=== PATIENT | female | born 1990 | race Caucasian/White ===

== ENCOUNTER 2021-05-27 17:19 | Inpatient (IN) ==
--- NOTE | 2021-05-27 18:11 | History & Physical Report ---
Date of Service May 27, 2021 Assessment & Plan (1) Dichorionic diamniotic twin : (2) Preeclampsia: (3) Pruritus of : Plan: Suspect preeclampsia, unclear if severe features. Check labs. Need more bp values. Give betameth. Will need to obtain gbs. Patient without symptoms but aware concern would be severe features needing induction. History of Present Illness Chief Complaint: planned nsts. Primary Care Provider: Ilya Craig 30yo at 35 6/7 wks ega twins here for planned twin nsts but with elevated bps. Patient notes increased swelling in feet and face last few days. Was in office last week and noted itching, all over, but particularly worse on hands and feet. She had lfts that were normal on 05/23/21. Notes some episodes of vomiting lately that she felt was related to acid reflux. No continued ruq or epig pain. No hough or visual change. BP repeated sitting with feet flat on floor and elevated 150s/90s. +3 protein on dip. PNC c/b 1. Di/di twins, concordant growth, last eval 05/03/21. 2. Recent pruritis in , cholestasis labs pending PNL rh pos, ri Allergies Allergy/AdvReac Type Severity Reaction Status Date / Time No Known Allergies Allergy Verified 05/23/21 16:04 Home Medications Medication Instructions Recorded Confirmed Type aspirin 81 mg tablet 81 mg PO DAILY 05/23/21 05/23/21 History prenat.vits,brianne,sug-[id number] 1 tab PO DAILY 05/23/21 05/23/21 History Patient History Surgical History S/P tonsillectomy [place] teeth extracted Family History Denies family history of Ovarian cancer Breast cancer Colorectal cancer Social History (Updated 05/23/21 @ 16:58 by Marlene Rasheed RN) Smoking Status: Never smoker Second Hand Exposure: No; Hx Alcohol Use: No Hx Substance Use: No Preferred Language: Kenyan Communication Ability: Effective Visual Impairment: No Limitations Hearing Ability: Normal Haircutter Required: No Beliefs That Will Affect Care: None marital status: marital status details: Matheus [phone] Current Living Situation: Spouse Current Living Situation Comment: lives with spouse, 1 dog. current occupational status: employed current occupation: teacher Feels Safe at Home: Yes Safety Concerns: Feels Safe At This Time Childhood Exposure to Second-Hand Smoke: No caffeine: No during the past year weight has: increased > 10 lbs Dental Care, Regularly: Yes Physical Activity Frequency: Daily Seatbelt Use: always Sunscreen Use: Yes Do you think of yourself as: straight/heterosexual Sexual Activity: has been sexually active within the last 12 months Gender Identity: Female Assistive Devices: None Review of Systems as per Subjective / HPI Physical Exam Constitutional: WD/WN, vitals as above Respiratory: normal respiratory effort, lungs clear to auscultation Cardiovascular: Rate/Rhythm: regular rate and regular rhythm Gastrointestinal (Abdomen): soft gravid nt, cephalic/cephalic by us Musculoskeletal: +2 edema nontender calves Neurologic: grossly normal DTRs +2 no clonus Psychiatric: A+Ox3, euthymic affect Genitourinary: OB Exam Monitor Tracing: + external FHT monitor used, + external uterine monitor used (irrit), + category I (x 2 ) and + normal FHT variability Results & Data ([facility]) Vital Signs (Past 12 Hours) Vital Signs Temp Pulse BP 05/27/21 18:07 61 159/95 H 05/27/21 18:04 98.8 F 05/27/21 17:54 58 L 169/100 H 05/27/21 17:48 70 168/99 H 05/27/21 17:29 75 152/99 H 05/27/21 17:28 73 158/103 H Coding Level of Care Code None Diagnoses Dichorionic diamniotic twin O30.049 Preeclampsia O14.90 Pruritus of O99.719; L29.9
[2021-05-27] MEDS ORDERED: BETAMETH SOD PHOS/ACETATE IA 6 MG/ML IM STA (18:30)
[2021-05-27 18:41] LABS: Mean Corpuscular Hgb Conc 35.3 g/dL (32-36); Nucleated RBC # (auto) 0.04 K/uL (0-0); Nucleated RBC % (auto) 0.6 %
[2021-05-27 18:48] LABS: Hematocrit (blood only) 35.7 % (37-47); Hemoglobin 12.6 g/dL (12.0-16.0); Mean Corpuscular Hemoglobin 31.4 pg (25-34); RDW Coefficient of Variation 13.7 % (11.5-14.5); RDW Standard Deviation 44.6 fL (36.4-46.3); Red Blood Count 4.01 M/uL (4.2-5.4); White Blood Count 5.49 K/uL (4.8-10.8)
[2021-05-27 18:52] LABS: Partial Thromboplastin Ratio 1.1; Partial Thromboplastin Time 30.1 Seconds (21.0-31.0); Prothrombin Time 10.3 Seconds (9.0-12.0)
[2021-05-27 19:05] LABS: Alanine Aminotransferase 46 U/L (7-52); Albumin Globulin Ratio 1.2 (0.9-2); Alkaline Phosphatase 296 U/L (34-104); Anion Gap 7 (3-11); Aspartate Aminotransferase 49 U/L (13-39); Bilirubin,Total 0.8 mg/dl (0.2-1.0); Blood Urea Nitrogen 17 mg/dl (6-23); Calcium 8.7 mg/dl (8.5-10.1); Carbon Dioxide 19 mmol/L (21-32); Chloride 108 mmol/L (98-107); Est GFR (African American) 86.9 ml/min; Globulin 2.6 gm/dl (2.5-4.0); Glucose 75 mg/dl (70-99(Fasting)); Potassium 4.7 mmol/L (3.5-5.1); Sodium 134 mmol/L (136-145); Total Protein 5.6 gm/dl (6.0-8.3)
[2021-05-27 19:17] LABS: Basophils # (auto) 0.02 K/uL (0-0.2); Basophils % (auto) 0.4 %; Eosinophils # (auto) 0.05 K/uL (0-0.5); Eosinophils % (auto) 0.9 %; Immature Granulocytes # (auto) 0.05 K/uL (0.00-0.02); Immature Granulocytes % (auto) 0.9 %; Lymphocytes # (auto) 1.84 K/uL (1.2-3.4); Lymphocytes % (auto) 33.5 %; Monocytes # (auto) 0.54 K/uL (0.11-0.59); Monocytes % (auto) 9.8 %; Neutrophils # (auto) 2.99 K/uL (1.4-6.5); Neutrophils % (auto) 54.5 %; Platelet Count 149 K/uL (130-400); Platelet Estimate Normal (Normal); Polychromasia 1+
[2021-05-27 20:07] LABS: Creatinine Urine Random 74.5 mg/dl; Protein Creatinine Ratio Urine 5.4 (0-0.2); Total Protein Urine Random 401.2 mg/dl (0-11.9)
--- NOTE | 2021-05-27 21:22 | Obstetrical Progress Note ---
Date of Service May 27, 2021 Assessment & Plan (1) Preeclampsia: (2) Dichorionic diamniotic twin : (3) with 35 completed weeks gestation: Plan: Serial bps for most part not severe range. When sbp >160 is not repeated in 15min. Again denies symptoms. Given labs, creat 1.0 and ast slightly elevated but not 2x normal noted. [place] [facility] [place] scenario. Clearly preeclampsia but was not sure they would consider her meeting severe features. Reviewed with mfm and feel best to keep in house, do serial labs with high suspicion that her picture may declare itself with more time. Already has had steroids. They also feel that waiting for allow for that benefit. Had reviewed patient scenario with peds who agrees with keeping patient here for any planned delivery. Given presentations, pt would want attempt at vaginal delivery. Dis cussed all with pt. Plan labs again at 1230 and change to 23hr obs for now. Plan gbs swab and covid test. Also spoke to oncoming md for am re: pt scenario to collaborate given their involvement with pt tomorrow. Subjective Pt denies complaints. She is wanting to eat. Physical Exam Genitourinary: OB Exam Monitor Tracing: + external FHT monitor used (nst x 2 reactive) Results & Data ([facility]) Vital Signs (Past 12 Hours) Vital Signs Temp Pulse Resp BP 05/27/21 20:48 64 143/94 H 05/27/21 20:18 67 140/88 05/27/21 19:48 67 141/91 H 05/27/21 19:21 68 153/97 H 05/27/21 19:19 71 164/107 H 05/27/21 19:15 98.1 F 18 05/27/21 18:50 69 157/95 H 05/27/21 18:07 61 159/95 H 05/27/21 18:04 98.8 F 05/27/21 17:54 58 L 169/100 H 05/27/21 17:48 70 168/99 H 05/27/21 17:29 75 152/99 H 05/27/21 17:28 73 158/103 H Laboratory Results reviewed all. PG Care Time/CCT Total # of Minutes Spent Total Time Spent with Patient: Total time spent is greater than 50% in coordination of care (as documented) at patient's floor/unit and/or counseling patient: Coding Level of Care Code None Diagnoses Preeclampsia O14.90 Dichorionic diamniotic twin O30.049 with 35 completed weeks gestation Z3A.35
[2021-05-27] MEDS ORDERED: FAMOTIDINE 20 MG TAB PO PRN (21:43)
[2021-05-27] MEDS ORDERED: CALCIUM CARBONATE 500 MG CHEWABLE TAB PO PRN (21:43)
--- NOTE | 2021-05-27 21:53 | Obstetrical Progress Note ---
Date of Service May 27, 2021 Assessment & Plan (1) Preeclampsia: (2) with 35 completed weeks gestation: (3) Dichorionic diamniotic twin : Plan: needed to get and send gbs. covid test neg. discussed induction methods if we get there, like gregg ripening balloon and pitocin. discussed use of magnesium for seizure prophylaxis. rec she have a diet now and then nothing as we await 1230am labs. will get heplock as well and due to c/o heartburn i put in prn orders for pepcid and tums. pt aware. denies questions. rec light diet. Admission and Anticipated Discharge Date Admission Date: May 27, 2021 Physical Exam Genitourinary: Manual OB Exam: + cervical dilation fingertip, + cervical effacement 70% and + station (mid, med) -2 gbs obtained. Results & Data ([facility]) Vital Signs (Past 12 Hours) Vital Signs Temp Pulse Resp BP 05/27/21 21:44 69 181/98 H 05/27/21 21:43 65 159/102 H 05/27/21 20:48 64 143/94 H 05/27/21 20:18 67 140/88 05/27/21 19:48 67 141/91 H 05/27/21 19:21 68 153/97 H 05/27/21 19:19 71 164/107 H 05/27/21 19:15 98.1 F 18 05/27/21 18:50 69 157/95 H 05/27/21 18:07 61 159/95 H 05/27/21 18:04 98.8 F 05/27/21 17:54 58 L 169/100 H 05/27/21 17:48 70 168/99 H 05/27/21 17:29 75 152/99 H 05/27/21 17:28 73 158/103 H PG Care Time/CCT Total # of Minutes Spent Total Time Spent with Patient: Total time spent is greater than 50% in coordination of care (as documented) at patient's floor/unit and/or counseling patient: Coding Level of Care Code None Diagnoses Preeclampsia O14.90 with 35 completed weeks gestation Z3A.35 Dichorionic diamniotic twin O30.049
[2021-05-28 00:41] LABS: Hematocrit (blood only) 36.5 % (37-47); Mean Corpuscular Hemoglobin 31.3 pg (25-34); Mean Corpuscular Hgb Conc 35.6 g/dL (32-36); Mean Platelet Volume 12.7 fL (7.4-10.4); Nucleated RBC # (auto) 0.05 K/uL (0-0); Nucleated RBC % (auto) 0.6 %; Platelet Count 159 K/uL (130-400); RDW Coefficient of Variation 13.6 % (11.5-14.5); RDW Standard Deviation 44.1 fL (36.4-46.3); Red Blood Count 4.15 M/uL (4.2-5.4); White Blood Count 7.69 K/uL (4.8-10.8)
[2021-05-28 01:03] LABS: Alanine Aminotransferase 51 U/L (7-52); Albumin Globulin Ratio 1.1 (0.9-2); Alkaline Phosphatase 301 U/L (34-104); Anion Gap 10 (3-11); Aspartate Aminotransferase 54 U/L (13-39); BUN Creatinine Ratio 17.1 (10-20); Bilirubin,Total 0.8 mg/dl (0.2-1.0); Blood Urea Nitrogen 19 mg/dl (6-23); Calcium 8.4 mg/dl (8.5-10.1); Carbon Dioxide 17 mmol/L (21-32); Chloride 107 mmol/L (98-107); Est GFR (African American) 76.6 ml/min; Est GFR (Non-African American) 66.1 ml/min; Globulin 2.7 gm/dl (2.5-4.0); Glucose 148 mg/dl (70-99(Fasting)); Potassium 4.6 mmol/L (3.5-5.1); Sodium 134 mmol/L (136-145); Total Protein 5.7 gm/dl (6.0-8.3)
[2021-05-28] MEDS ORDERED: miSOPROStoL 25 MCG TAB PV STA (02:25)
[2021-05-28] MEDS ORDERED: LACTATED RINGER'S 500 ML IV ONE (02:28)
--- NOTE | 2021-05-28 02:28 | Labor Progress Brief Note ---
Date of Service May 28, 2021 Subjective did have some dinner. feels ok. no hough or visual change. no n/v. bps mild range. labs worsening, although incremental, as d/w mfm, meets severe features. Assessment & Plan (1) Dichorionic diamniotic twin : (2) Severe preeclampsia: Plan: Discussed with couple findings on repeat labs. Incrementally increased and suspect will cont to increase. Based on prior conversation with mfm, with any worsening, rec induction of labor. Patient and partner agree. Will plan labs again in 6hr. After this discussion, risks/benefits, we attempted gregg balloon placement which was not successful. Can consider cytotec but currently having more ctx than would allow use, therefore will give bolus and see if they space, if not or when we start pitocin, will start magnesium. All reviewed with patient and questions answered. Admission and Anticipated Discharge Date Admission Date: May 27, 2021 Physical Exam Constitutional: WD/WN, vitals as above Genitourinary: OB Exam Monitor Tracing: + external FHT monitor used (x2 reactive. ), + external uterine monitor used (q2-4), + category I and + normal FHT variability PROCEDURE: sse cx visualized, lighting extremely poor, used lighted speculum and metal spec. cx grasped on ant lip with ring forcep, gregg unable to pass through os after 3 attempts. Procedure aborted. Results & Data ([facility]) Vital Signs (Past 12 Hours) Vital Signs Temp Pulse Resp BP 05/28/21 01:48 71 155/91 H 05/28/21 01:17 66 141/87 H 05/28/21 00:22 72 143/91 H 05/27/21 22:38 63 167/80 H 05/27/21 22:17 70 146/94 H 05/27/21 22:04 70 153/104 H 05/27/21 21:50 75 158/107 H 05/27/21 21:44 69 181/98 H 05/27/21 21:43 65 159/102 H 05/27/21 20:48 64 143/94 H 05/27/21 20:18 67 140/88 05/27/21 19:48 67 141/91 H 05/27/21 19:21 68 153/97 H 05/27/21 19:19 71 164/107 H 05/27/21 19:15 98.1 F 18 05/27/21 18:50 69 157/95 H 05/27/21 18:07 61 159/95 H 05/27/21 18:04 98.8 F 05/27/21 17:54 58 L 169/100 H 05/27/21 17:48 70 168/99 H 05/27/21 17:29 75 152/99 H 05/27/21 17:28 73 158/103 H Coding Level of Care Code None Diagnoses Dichorionic diamniotic twin O30.049 Severe preeclampsia O14.10 CPT Codes Misx Procedure Codes - 76485-89 Placement of cervical dilator: 67422-48 Placement of cervical dilator w/53 modifier (TI62558-41) CLIENT LIAISON Miscellaneous Codes Misx Procedure Codes 22450-27 Placement of cervical dilator w/53 modifier
[2021-05-28] MEDS: LACTATED RINGER'S 1,000 ML IV SCH ×2 (03:20→08:42)
[2021-05-28] MEDS ORDERED: OXYTOCIN 30 UNITS/500 ML BAG IV PRN (05:59)
[2021-05-28] MEDS ORDERED: MAG SULFATE 4GM BOLUS FROM BAG IV ONE (05:59)
[2021-05-28 06:11] LABS: Hemoglobin 12.3 g/dL (12.0-16.0); Mean Corpuscular Hemoglobin 30.7 pg (25-34); Mean Corpuscular Hgb Conc 34.2 g/dL (32-36); Mean Corpuscular Volume 89.8 fL (80-100); Mean Platelet Volume 13.6 fL (7.4-10.4); Nucleated RBC # (auto) 0.05 K/uL (0-0); Nucleated RBC % (auto) 0.9 %; Platelet Count 153 K/uL (130-400); RDW Coefficient of Variation 13.6 % (11.5-14.5); RDW Standard Deviation 44.3 fL (36.4-46.3); Red Blood Count 4.01 M/uL (4.2-5.4); White Blood Count 5.72 K/uL (4.8-10.8)
[2021-05-28 06:20] LABS: Alanine Aminotransferase 50 U/L (7-52); Albumin Level 2.7 gm/dl (3.4-5.0); Alkaline Phosphatase 283 U/L (34-104); Anion Gap 9 (3-11); Aspartate Aminotransferase 53 U/L (13-39); BUN Creatinine Ratio 18.9 (10-20); Bilirubin,Total 0.8 mg/dl (0.2-1.0); Blood Urea Nitrogen 20 mg/dl (6-23); Calcium 7.9 mg/dl (8.5-10.1); Carbon Dioxide 15 mmol/L (21-32); Chloride 110 mmol/L (98-107); Est GFR (Non-African American) 69.9 ml/min; Globulin 2.6 gm/dl (2.5-4.0); Glucose 109 mg/dl (70-99(Fasting)); Sodium 134 mmol/L (136-145); Total Protein 5.3 gm/dl (6.0-8.3)
[2021-05-28] MEDS: MAGNESIUM SULFATE / WTR 40 GM/1,000 ML BAG IV SCH (07:37)
--- NOTE | 2021-05-28 08:33 | Labor Progress Brief Note ---
Date of Service May 28, 2021 Subjective doing ok. denies hough, visual change. alot of swelling. Assessment & Plan (1) Severe preeclampsia: (2) 36 weeks gestation of : (3) Dichorionic diamniotic twin : Plan: stable. am labs reviewed. stable, not worsening. cx exam as noted s/p cytotec x 1. will await oncoming md to decide next steps--suspect pitocin given amount of ctx. mag infusing. plan pcn for gbs unknown. fhts categ 1 x2. plan of care reviewed, denies questions. Admission and Anticipated Discharge Date Admission Date: May 27, 2021 Physical Exam Constitutional: WD/WN, vitals as above Musculoskeletal: +3 edema. Genitourinary: Manual OB Exam: + cervical dilation 1 cm, + cervical effacement 80% and + station (anterior and left) -2 OB Exam Monitor Tracing: + external FHT monitor used, + external uterine monitor used (q2-3 ), + category I and + normal FHT variability Results & Data ([facility]) Vital Signs (Past 12 Hours) Vital Signs Temp Pulse Resp BP 05/28/21 08:08 82 137/79 05/28/21 08:04 83 136/80 05/28/21 07:59 78 131/85 05/28/21 07:53 76 142/92 H 05/28/21 07:49 85 142/94 H 05/28/21 07:48 82 137/89 05/28/21 07:43 83 141/89 H 05/28/21 07:38 73 148/94 H 05/28/21 07:26 97.7 F 74 18 152/92 H 05/28/21 05:57 93 H 136/79 05/28/21 05:26 83 118/68 05/28/21 04:58 75 129/73 05/28/21 03:47 69 124/73 05/28/21 03:22 72 151/85 H 05/28/21 01:48 71 155/91 H 05/28/21 01:17 66 141/87 H 05/28/21 00:22 72 143/91 H 05/27/21 22:38 63 167/80 H 05/27/21 22:17 70 146/94 H 05/27/21 22:04 70 153/104 H 05/27/21 21:50 75 158/107 H 05/27/21 21:44 69 181/98 H 05/27/21 21:43 65 159/102 H 05/27/21 20:48 64 143/94 H Coding Level of Care Code None Diagnoses Severe preeclampsia O14.10 36 weeks gestation of Z3A.36 Dichorionic diamniotic twin O30.049
[2021-05-28] MEDS ORDERED: PENICILLIN G POTASSIUM 6 MU in DEXTROSE 5% 250 ML IV STA (08:42)
[2021-05-28] MEDS: ONDANSETRON INJ 2 MG/ML 2 ML VIAL IV PRN ×2 (10:44→16:54)
[2021-05-28] MEDS: PENICILLIN G POTASSIUM 3 MU in DEXTROSE 5% 100 ML IV PRN ×3 (13:02→21:23)
[2021-05-28] MEDS ORDERED: ePHEDrine sulfate 50 MG/ML AMP ONE (16:08)
[2021-05-28] MEDS ORDERED: fentaNYL citrate 100 MCG/2 ML VIAL ONE ×2 (16:09→23:09)
[2021-05-28] MEDS ORDERED: BUPIVACAINE 0.25% 30 ML VIAL ONE ×2 (16:09→23:09)
[2021-05-28] MEDS ORDERED: SODIUM CHLORIDE 0.9% INJ 10 ML VIAL ONE ×2 (16:09→23:13)
[2021-05-28] MEDS ORDERED: fentaNYL 2MCG/ML ROPIVACAINE 1.25MG/ML 100 ML BAG EPI ONE (16:09)
[2021-05-28] MEDS ORDERED: diphenhydrAMINE 50 MG/ML VIAL IV PRN (16:10)
[2021-05-28] MEDS ORDERED: ONDANSETRON INJ 2 MG/ML 2 ML VIAL IV PRN (16:10)
[2021-05-28] MEDS ORDERED: ePHEDrine sulfate 50 MG/ML AMP IV PRN (16:10)
[2021-05-28] MEDS ORDERED: NALOXONE HCL 0.4 MG/1 ML VIAL/CARP IV PRN (16:10)
[2021-05-28] MEDS ORDERED: NALOXONE HCL 1 MG in SODIUM CHLORIDE 0.9% 1000ML 1,000 ML IV PRN (16:10)
[2021-05-28] MEDS ORDERED: NALBUPHINE HCL INJ 10 MG/ML AMP IV PRN (16:10)
--- NOTE | 2021-05-28 16:11 | Anesthesiology Consultation ---
Date of Service May 28, 2021 Assessment & Plan (1) Encounter for pre-operative examination: Chart Review Chart Review: Patient NOT seen in Pre Admission Testing and Acceptable Risk for Labor Epidural Consults Requested none History Height/Weight Height: 5 ft 7 in Weight: 90.945 kg Allergies Allergy/AdvReac Type Severity Reaction Status Date / Time No Known Allergies Allergy Verified 05/23/21 16:04 Medications Home Medications Medication Instructions Recorded Confirmed Last Taken prenat.vits,brianne,[id number]-[id number]-[id number] 1 tab PO DAILY 05/23/21 05/28/21 05/23/21 08:00 aspirin 81 mg chewable tablet 81 mg PO DAILY 05/28/21 05/28/21 Unknown Active Medications Generic Name Dose Route Start Last Admin Trade Name Freq PRN Reason Stop Dose Admin Famotidine 20 mg 05/27/21 21:43 05/28/21 03:20 Famotidine 20 Mg Tab PO 06/26/21 21:44 20 mg BID PRN Administration Heartburn Lactated Ringer's 1,000 mls @ 125 mls/hr 05/28/21 03:00 05/28/21 08:42 Lr IV 06/27/21 02:59 75 mls/hr .Q8H BELLE Administration Oxytocin 30 units in 500 mls @ 9 mls/hr 05/28/21 05:59 05/28/21 14:28 Pitocin IV 05/30/21 05:58 0.54 units/hr .Q24H PRN 9 mls/hr Labor Induction/Augmentation Titration Protocol 0.54 UNITS/HR Magnesium Sulfate 40 gm in 1,000 mls @ 50 mls/hr 05/28/21 06:00 05/28/21 14:58 Magnesium Sulfate / Wtr IV 06/27/21 05:59 50 mls/hr .Q20H BELLE Infusion Penicillin G Potassium 3 mu/ 106 mls @ 100 mls/hr 05/28/21 11:34 05/28/21 15:30 Dextrose IV 06/07/21 11:33 Infused Q4H PRN Infusion GBS(+) Until Delivery Ondansetron HCl 4 mg 05/28/21 10:28 05/28/21 10:44 Ondansetron Inj 2 Mg/Ml 2 Ml Vial IV 06/27/21 10:27 4 mg Q6H PRN Administration Nausea And Vomiting Past Medical History Medical History (Updated 05/28/21 @ 16:11 by Saji De La Cruz MD) Dichorionic diamniotic twin Severe preeclampsia Past Family History Family History Denies family history of Ovarian cancer Breast cancer Colorectal cancer Past Surgical History Surgical History S/P tonsillectomy [place] teeth extracted Social History Smoking Status: Never smoker Hx Alcohol Use: No Hx Substance Use: No substance use type: does not use Physical Exam Vital Signs Last Vital Signs Temp 36.6 C 05/28/21 15:05 Pulse 90 05/28/21 16:08 Resp 16 05/28/21 15:30 BP 144/84 H 05/28/21 15:41 Pulse Ox 100 05/28/21 16:08 Testing Laboratory Results 05/28/21 05:46 05/28/21 05:46 PT 10.3 Seconds (9.0-12.0) 05/27/21 18:27 INR 1.0 (0.9-1.1) 05/27/21 18:27 APTT 30.1 Seconds (21.0-31.0) 05/27/21 18:27
[2021-05-28 16:36] LABS: Hematocrit (blood only) 41.1 % (37-47); Mean Corpuscular Volume 91.1 fL (80-100); Nucleated RBC # (auto) 0.08 K/uL (0-0); Nucleated RBC % (auto) 0.8 %; Platelet Count 227 K/uL (130-400); RDW Coefficient of Variation 14.1 % (11.5-14.5); Red Blood Count 4.51 M/uL (4.2-5.4); White Blood Count 10.27 K/uL (4.8-10.8)
[2021-05-28 16:47] LABS: Mean Corpuscular Hgb Conc 34.1 g/dL (32-36)
[2021-05-28 16:55] LABS: Creatinine Clr Calc Pharmacy 76.7 ml/min; Est GFR (African American) 67.7 ml/min; Est GFR (Non-African American) 58.4 ml/min
[2021-05-28 17:03] LABS: Basophils # (auto) 0.01 K/uL (0-0.2); Basophils % (auto) 0.1 %; Eosinophils # (auto) 0.01 K/uL (0-0.5); Eosinophils % (auto) 0.1 %; Immature Granulocytes # (auto) 0.14 K/uL (0.00-0.02); Immature Granulocytes % (auto) 1.4 %; Lymphocytes # (auto) 1.64 K/uL (1.2-3.4); Monocytes # (auto) 0.95 K/uL (0.11-0.59); Monocytes % (auto) 9.3 %; Neutrophils # (auto) 7.52 K/uL (1.4-6.5); Neutrophils % (auto) 73.1 %
[2021-05-28] MEDS: fentaNYL 2MCG/ML ROPIVACAINE 1.25MG/ML 100 ML BAG EPI PRN ×2 (17:19→22:32)
[2021-05-28] MEDS ORDERED: BETAMETH SOD PHOS/ACETATE IA 6 MG/ML IM ONE (19:30)
--- NOTE | 2021-05-28 19:40 | Labor Progress Brief Note ---
Date of Service May 28, 2021 Subjective Reason For Note: Routine Evaluation patient comfortable with epidural analgesia- no PIH symptoms legs and lower abdomen edematous AROM at 1430 today for clear fluid Both babies are category 1 tracing with baselines in 110's labs from 1600 are stable with platelets actually increased at 253K cervix exam still 1+/80/-2 pitocin at 11 milliunits now IUPC attempted but unable to advance at this time contractions still not consistent continue with pitocin induction Review of Systems All systems reviewed & are unremarkable except as noted in HPI & below Assessment & Plan (1) Encounter for induction of labor: Plan: continue pitocin IOL will recheck labs at midnight Admission and Anticipated Discharge Date Admission Date: May 27, 2021 Physical Exam Constitutional: WD/WN, vitals as above Psychiatric: A+Ox3, euthymic affect [facility]) Vital Signs (Past 12 Hours) Vital Signs Temp Pulse Resp BP Pulse Ox 05/28/21 19:30 79 99 05/28/21 19:25 80 100 05/28/21 19:20 88 99 05/28/21 19:15 70 97 05/28/21 19:10 73 98 05/28/21 19:06 86 117/70 05/28/21 19:05 79 98 05/28/21 19:01 85 127/87 05/28/21 19:00 98.1 F 87 20 98 05/28/21 18:57 88 132/86 05/28/21 18:55 82 98 05/28/21 18:51 71 128/77 05/28/21 18:50 72 96 05/28/21 18:47 72 130/77 05/28/21 18:45 70 96 05/28/21 18:41 69 130/78 05/28/21 18:40 70 97 05/28/21 18:37 70 127/75 05/28/21 18:35 72 96 05/28/21 18:31 71 125/71 05/28/21 18:30 71 18 96 05/28/21 18:26 68 128/71 05/28/21 18:25 72 96 05/28/21 18:21 71 125/72 05/28/21 18:20 73 96 05/28/21 18:17 72 126/75 05/28/21 18:15 69 97 05/28/21 18:12 69 126/73 05/28/21 18:10 71 98 05/28/21 18:07 69 130/76 05/28/21 18:05 71 100 05/28/21 18:02 76 135/78 05/28/21 18:00 79 18 100 05/28/21 17:55 78 100 05/28/21 17:52 75 128/68 05/28/21 17:50 74 99 05/28/21 17:46 75 126/68 05/28/21 17:45 74 99 05/28/21 17:42 89 133/72 05/28/21 17:40 77 100 05/28/21 17:36 80 128/71 05/28/21 17:35 83 100 05/28/21 17:34 88 133/70 05/28/21 17:32 80 127/66 05/28/21 17:30 86 128/66 99 05/28/21 17:28 92 H 149/68 H 05/28/21 17:26 83 133/78 05/28/21 17:25 85 98 05/28/21 17:24 85 131/80 05/28/21 17:22 88 137/84 05/28/21 17:20 89 132/82 98 05/28/21 17:18 95 H 137/85 05/28/21 17:16 91 H 134/79 05/28/21 17:15 94 H 98 05/28/21 17:10 99 H 96 05/28/21 17:05 101 H 99 05/28/21 17:00 88 100 05/28/21 16:55 79 100 05/28/21 16:50 74 100 05/28/21 16:45 74 100 05/28/21 16:42 74 135/78 05/28/21 16:40 83 100 05/28/21 16:35 86 100 05/28/21 16:13 83 100 05/28/21 16:08 90 100 05/28/21 16:03 83 98 05/28/21 15:58 75 100 05/28/21 15:54 83 91 05/28/21 15:53 78 100 05/28/21 15:49 78 92 05/28/21 15:48 78 100 05/28/21 15:43 81 96 05/28/21 15:41 74 144/84 H 05/28/21 15:38 74 100 05/28/21 15:33 81 100 05/28/21 15:30 16 05/28/21 15:28 82 100 05/28/21 15:23 77 99 05/28/21 15:18 82 100 05/28/21 15:13 80 100 05/28/21 15:08 77 100 05/28/21 15:05 97.9 F 20 05/28/21 15:03 83 100 05/28/21 15:00 18 05/28/21 14:58 85 100 05/28/21 14:55 77 154/85 H 05/28/21 14:53 86 100 05/28/21 14:48 82 100 05/28/21 14:43 80 100 05/28/21 14:38 84 97 05/28/21 14:33 77 100 05/28/21 14:30 18 05/28/21 14:28 84 18 99 05/28/21 14:23 89 98 05/28/21 13:50 75 97 05/28/21 13:45 70 96 05/28/21 13:41 69 132/74 05/28/21 13:40 72 96 05/28/21 13:35 75 97 05/28/21 13:30 69 98 05/28/21 13:25 75 99 05/28/21 13:20 84 100 05/28/21 13:15 97.9 F 80 18 100 05/28/21 13:10 81 100 05/28/21 13:05 80 99 05/28/21 13:00 83 18 100 05/28/21 12:55 83 99 05/28/21 12:50 81 100 05/28/21 12:45 82 100 05/28/21 12:40 80 99 05/28/21 12:35 77 100 05/28/21 12:30 78 18 100 05/28/21 12:25 80 100 05/28/21 12:20 73 18 100 05/28/21 12:15 78 99 05/28/21 12:10 93 H 99 05/28/21 12:05 96 H 98 05/28/21 11:53 73 96 05/28/21 11:48 72 96 05/28/21 11:43 71 96 05/28/21 11:42 78 133/75 0322/22 11:38 82 96 05/28/21 11:33 76 97 05/28/21 11:28 72 97 05/28/21 11:23 76 98 05/28/21 11:20 16 05/28/21 11:18 72 97 05/28/21 11:13 68 97 05/28/21 11:08 74 97 05/28/21 11:03 68 98 05/28/21 11:00 18 05/28/21 10:58 67 98 05/28/21 10:53 72 100 05/28/21 10:48 77 100 05/28/21 10:43 88 99 05/28/21 10:40 85 140/84 05/28/21 10:38 84 98 05/28/21 10:33 83 98 05/28/21 10:28 81 98 05/28/21 10:25 78 16 138/82 05/28/21 10:23 82 98 05/28/21 10:18 79 99 05/28/21 10:13 85 99 05/28/21 10:09 74 140/82 05/28/21 10:08 85 98 05/28/21 10:03 72 97 05/28/21 09:58 72 98 05/28/21 09:54 70 129/75 05/28/21 09:53 72 98 05/28/21 09:48 85 99 05/28/21 09:43 97.7 F 81 20 100 05/28/21 09:39 86 137/83 05/28/21 09:38 85 99 05/28/21 09:30 18 05/28/21 09:25 76 184/89 H 05/28/21 09:09 79 142/97 H 05/28/21 09:00 18 05/28/21 08:30 18 05/28/21 08:25 86 152/82 H 05/28/21 08:08 82 18 137/79 05/28/21 08:04 83 136/80 05/28/21 07:59 78 131/85 05/28/21 07:53 76 142/92 H 05/28/21 07:49 85 142/94 H 05/28/21 07:48 82 137/89 05/28/21 07:43 83 141/89 H 05/28/21 07:38 73 148/94 H 05/28/21 07:37 18 Coding Level of Care Code None Diagnoses Encounter for induction of labor Z34.90
[2021-05-28] MEDS ORDERED: NURSING L&D Epidural Breakthrough Pain Update ONE (23:14)
--- NOTE | 2021-05-28 23:27 | Communication Note ---
Date of Service: May 28, 2021 At 2317 , patient epidural catheter was bolused w/ 12 ml 0.17% bupivacaine + 100 mcgs fentanyl using incremental aspirations and injections;neg. asp. for CSF or blood; vital signs stable.
[2021-05-29] MEDS: fentaNYL 2MCG/ML ROPIVACAINE 1.25MG/ML 100 ML BAG EPI PRN ×2 (00:25→05:48)
[2021-05-29 00:50] LABS: Hematocrit (blood only) 38.6 % (37-47); Hemoglobin 13.2 g/dL (12.0-16.0); Mean Corpuscular Hemoglobin 31.1 pg (25-34); Mean Corpuscular Hgb Conc 34.2 g/dL (32-36); Mean Platelet Volume 13.2 fL (7.4-10.4); Nucleated RBC # (auto) 0.09 K/uL (0-0); Nucleated RBC % (auto) 0.9 %; Platelet Count 216 K/uL (130-400); RDW Coefficient of Variation 14.1 % (11.5-14.5); RDW Standard Deviation 46.2 fL (36.4-46.3); Red Blood Count 4.24 M/uL (4.2-5.4); White Blood Count 9.32 K/uL (4.8-10.8)
[2021-05-29] MEDS: PENICILLIN G POTASSIUM 3 MU in DEXTROSE 5% 100 ML IV PRN ×2 (00:53→05:26)
[2021-05-29 01:09] LABS: Basophils # (auto) 0.02 K/uL (0-0.2); Basophils % (auto) 0.2 %; Echinocytes 1+; Eosinophils # (auto) 0.01 K/uL (0-0.5); Eosinophils % (auto) 0.1 %; Immature Granulocytes # (auto) 0.17 K/uL (0.00-0.02); Immature Granulocytes % (auto) 1.8 %; Lymphocytes # (auto) 1.18 K/uL (1.2-3.4); Lymphocytes % (auto) 12.7 %; Monocytes # (auto) 0.59 K/uL (0.11-0.59); Monocytes % (auto) 6.3 %; Neutrophils # (auto) 7.35 K/uL (1.4-6.5); Neutrophils % (auto) 78.9 %
[2021-05-29 01:16] LABS: Creatinine Clr Calc Pharmacy 75.5 ml/min; Est GFR (African American) 66.4 ml/min; Est GFR (Non-African American) 57.3 ml/min
[2021-05-29] MEDS: MAGNESIUM SULFATE / WTR 40 GM/1,000 ML BAG IV SCH (02:09)
[2021-05-29] MEDS: ONDANSETRON INJ 2 MG/ML 2 ML VIAL IV PRN (03:15)
[2021-05-29] MEDS: LACTATED RINGER'S 1,000 ML IV SCH ×2 (03:53→06:49)
[2021-05-29] MEDS: OXYTOCIN 30 UNITS/500 ML BAG IV PRN ×2 (08:22→08:56)
[2021-05-29] MEDS ORDERED: IBUPROFEN 600 MG TAB PO PRN (08:44)
[2021-05-29] MEDS ORDERED: DIPHTHERIA/TETANUS/PERTUSSIS 0.5 ML SYR/VIAL IM ONE (08:44)
[2021-05-29] MEDS ORDERED: BENZOCAINE 20% AER SPR 82.5 GM CAN EXT PRN (08:44)
[2021-05-29] MEDS ORDERED: bisacodyL 10 MG SUPP PR PRN (08:44)
[2021-05-29] MEDS ORDERED: HYDROCORTISONE ACETATE 25 MG SUPP PR PRN (08:44)
[2021-05-29 09:07] LABS: Hematocrit (blood only) 36.4 % (37-47); Hemoglobin 12.2 g/dL (12.0-16.0); Mean Corpuscular Hemoglobin 30.8 pg (25-34); Mean Corpuscular Volume 91.9 fL (80-100); Nucleated RBC # (auto) 0.07 K/uL (0-0); Nucleated RBC % (auto) 0.5 %; Platelet Count 261 K/uL (130-400); RDW Coefficient of Variation 13.9 % (11.5-14.5); RDW Standard Deviation 45.6 fL (36.4-46.3); Red Blood Count 3.96 M/uL (4.2-5.4); White Blood Count 14.11 K/uL (4.8-10.8)
[2021-05-29] MEDS ORDERED: BENZOCAINE 20% AER SPR 82.5 GM CAN EXT ONE (09:24)
[2021-05-29] MEDS ORDERED: IBUPROFEN 600 MG TAB PO ONE (09:24)
[2021-05-29] MEDS ORDERED: oxyCODONE/ACETAMINOPHEN 5mg/325mg TAB PO ONE (09:24)
[2021-05-29 09:26] LABS: BUN Creatinine Ratio 13.7 (10-20); Calcium 7.1 mg/dl (8.5-10.1); Creatinine Clr Calc Pharmacy 61.7 ml/min; Est GFR (Non-African American) 44.9 ml/min; Potassium 4.5 mmol/L (3.5-5.1)
--- NOTE | 2021-05-29 09:26 | Anesthesia Procedure Note ---
Date of Service May 29, 2021 Anesthesia Post Epidural Note Vital Signs Vital Signs: Temp Pulse Resp BP Pulse Ox 36.7 C 74 18 145/82 H 100 05/29/21 06:00 05/29/21 09:24 05/29/21 06:00 05/29/21 09:21 05/29/21 09:24 Pain Intensity Bilateral Lower Abdomen: Pain Intensity: 0 Notes Mental Status: alert / awake / arousable and participated in evaluation Nausea / Vomiting: adequately controlled Pain: adequately controlled Airway Patency, RR, SpO2: stable & adequate BP & HR: stable & adequate Hydration State: stable & adequate Neuraxial Anesthesia: was administered and sensory block is resolving Anesthetic Complications: no major complications apparent and Pt Satisfied with anesthetic care Epidural: Removed without complications and With tip intact
[2021-05-29 09:31] LABS: Albumin Globulin Ratio 1.1 (0.9-2); Albumin Level 2.6 gm/dl (3.4-5.0); Bilirubin,Total 0.8 mg/dl (0.2-1.0); Globulin 2.4 gm/dl (2.5-4.0)
[2021-05-29 09:34] LABS: Basophils # (auto) 0.02 K/uL (0-0.2); Basophils % (auto) 0.1 %; Echinocytes 1+; Eosinophils # (auto) 0.01 K/uL (0-0.5); Eosinophils % (auto) 0.1 %; Immature Granulocytes # (auto) 0.16 K/uL (0.00-0.02); Immature Granulocytes % (auto) 1.1 %; Lymphocytes # (auto) 1.52 K/uL (1.2-3.4); Lymphocytes % (auto) 10.8 %; Mean Corpuscular Hgb Conc 33.5 g/dL (32-36); Monocytes # (auto) 0.97 K/uL (0.11-0.59); Monocytes % (auto) 6.9 %; Neutrophils # (auto) 11.43 K/uL (1.4-6.5); Polychromasia 1+
[2021-05-29 09:45] LABS: Magnesium 9.1 mg/dl (1.7-2.4)
--- NOTE | 2021-05-29 09:46 | Delivery Summary ---
Vaginal Delivery Summary Date of Service May 29, 2021 Vaginal Delivery Summary (twinB), VAVD (twin A) and 1st Degree LAC Patient is a 30-year-old 1 P0 EDC of 06/25/2021 with known diamniotic dichorionic twin gestation. She presented to labor and delivery at 36 weeks for her scheduled nonstress test because of the twin gestation and her blood pressures were noted to be elevated accompanied by significant lower extremity edema. Her labs met the criteria for induced hypertension with severe features. A cervical balloon was attempted to initiate induction of labor however this was unsuccessful. Cytotec vaginally was given but after 1 dose contraction frequency was too much to continue with this mode of induction. Pitocin augmentation of her labor was then begun as well as magnesium sulfate. Membranes were ruptured on twin A for clear fluid she progressed slowly overnight to full dilation. After pushing in the labor room until twin A was at +2 station, she was then moved to the section room for delivery. Because of maternal exhaustion, the vacuum was applied through 1 contraction for delivery of twin A over intact perineum. A loose nuchal cord was reduced prior to delivering the rest of the infant. The was vigorous and crying upon delivery. The cord was clamped and cut and twin A was handed over to the nursery team for evaluation. Twin A's umbilical cord was clamped with a single umbilical clamp. Twin B was scanned and found to still be in vertex presentation. Several minutes later there was spontaneous rupture of fluid for twin B that was lightly meconium-stained. Patient then had a strong urge to push and the head was noted to be well applied to the cervix. She pushed through 1 contraction for delivery of twin B. A loose nuchal cord was also reduced prior to delivering the rest of the . The was vigorous and crying upon delivery and was placed on the mother's abdomen for further attention and drying. After approximately 30 seconds the cord was clamped and cut. After obtaining cord blood samples, the placenta which was fused, was delivered with gentle traction on the umbilical cords and fundal massage. It was then delivered intact with 2 three-vessel cords. bleeding was controlled with dilute Pitocin and fundal massage. First-degree perineal laceration was repaired with 3-0 chromic in the usual fashion. Her bladder was emptied for a small amount of clear urine prior to applying the vacuum on twin A. A Love catheter was reinserted after delivery for monitoring urine output and the initial time. Both mother and infant were doing well after d elivery. Estimated blood loss is 400 cc. [facility] Vaginal Delivery Charge Delivery Type Details: (twinB), VAVD (twin A) and 1st Degree LAC
--- NOTE | 2021-05-29 13:12 | Hospitalist Consultation ---
Date of Consultation May 29, 2021 Assessment & Plan (1) 36 weeks gestation of : s/p delivery by induction 05/29 - diamniotic dichorionic twin gestation delivery @ 36 weeks with induction (2) Preeclampsia: Visual disturbance suspected to be secondary to this Mg sulphate management per obstetrics (3) Hypermagnesemia: Mg sulphate appropriately discontinued however no sign of Mg toxicity at the current time. Will repeat level with next set of labs (4) JOSÉ LUIS (acute kidney injury): Suspect due to pre-eclampsia for which treatment is essentially delivery performed 05/29 Will repeat spot Protein/Cr ratio US renal to ro obstructive cause Gregg catheter in place - recommend continuing this for accurate hourly UO measurements for now - currently 30ml/hr Avoid NSAIDs - had one dose of ibuprofen this morning Can remain on obstetrics floor Consider reduction in Mg dose if this needs to be restarted Discussed care with Dr Bonilla (5) Acute hyponatremia: Urine Na/osm Serum osm Repeat BMP now I&Os - +ve 2.4L since admission VTE Prophylaxis - per primary obstetrics team Diet - per primary obstetrics team Disposition - continued admission on L&D History of Present Illness Reason for Consultation: Acute kidney failure Requesting Physician: Dr Bonilla Attending Physician: Irlanda Galindo MD, FACOG History of Present Illness Gavin Clemens is a 30 year old female admitted under obstetrics for diamniotic dichorionic twin gestation delivery and pre-eclampsia. She was induced at 36 week due to labs meeting criteria for induced hypertension with severe features. Both twins were delivered vaginally with twin A vacuum-assisted after rupture of membranes. Twin B was delivered vaginally shortly afterwards with spontaneous rupture of membranes. She reports ongoing vision disturbance with difficulty focusing but also reports feeling very tired. She denies any right upper quadrant abdominal pain. No significant headache. Current blood pressure well controlled at 122/69, platelets 261, no right upper quadrant pain, AST/ALT mildly elevated but < 2 times upper limit of normal. Regarding her acute kidney injury - Creatinine 1.53 from presumed baseline 1.0 (prior to delivery on 05/27). She denies any previous problems with her kidneys or any history of kidney stones. No CVA tenderness. Currently has a gregg catheter in place therefore unable to tell me about dysuria. UA has not yet been sent. Urine output approximately 30ml/hr. Medicine consulted regarding acute kidney injury. Allergies Allergy/AdvReac Type Severity Reaction Status Date / Time No Known Allergies Allergy Verified 05/23/21 16:04 Home Medications Medication Instructions Recorded Confirmed Type prenat.vits,brianne,tbb-zdsi-warfy 1 tab PO DAILY 05/23/21 05/28/21 History aspirin 81 mg chewable tablet 81 mg PO DAILY 05/28/21 05/28/21 History Patient History Medical History (Updated 05/29/21 @ 16:09 by Jose Alejandro Cabrera MD) Dichorionic diamniotic twin Severe preeclampsia Surgical History S/P tonsillectomy [place] teeth extracted Family History Denies family history of Ovarian cancer Breast cancer Colorectal cancer Social History (Updated 05/23/21 @ 16:58 by Marlene Rasheed RN) Smoking Status: Never smoker Second Hand Exposure: No; Hx Alcohol Use: No Hx Substance Use: No Preferred Language: [place] Communication Ability: Effective Visual Impairment: No Limitations Hearing Ability: Normal Senior Office Assistant Required: No Beliefs That Will Affect Care: None marital status: marital status details: Matheus [phone] Current Living Situation: Spouse Current Living Situation Comment: lives with spouse, 1 dog. current occupational status: employed current occupation: teacher Other Information That Helps Us Care for You: No Feels Safe at Home: Yes Safety Concerns: Feels Safe At This Time Childhood Exposure to Second-Hand Smoke: No caffeine: No during the past year weight has: increased > 10 lbs Dental Care, Regularly: Yes Physical Activity Frequency: Daily Seatbelt Use: always Sunscreen Use: Yes Do you think of yourself as: straight/heterosexual Sexual Activity: has been sexually active within the last 12 months Gender Identity: Female Assistive Devices: None Review of Systems Review of Systems: All systems reviewed & are unremarkable except as noted in Subjective Physical Exam Constitutional: WD/WN, vitals as above Eyes: PERRL, conjunctivae normal, anicteric sclerae Respiratory: normal respiratory effort, lungs clear to auscultation Cardiovascular: Rate/Rhythm: regular rate and regular rhythm Heart Sounds: no murmur Vessels: no JVD Extremities: normal capillary refill and + pedal edema (3+ b/l LE equal to knees); no calf tenderness Gastrointestinal (Abdomen): Inspection/Auscultation: normal bowel sounds Percussion/Palpation: + abdomen tender (mild suprapubic) and abdomen soft; no guarding and abdomen not rigid Musculoskeletal: no cyanosis or clubbing, extremities motor strength 5/5 Skin: no rashes, warm and dry Neurologic: deep tendon reflexes 2+ bilaterally (knees), moves all extremities and awake; no focal motor deficits and not confused Psychiatric: A+Ox3, euthymic affect Genitourinary: no CVA tenderness Results & Data Results & Data ([facility]) Vital Signs (Past 12 Hours) Vital Signs Temp Pulse Resp BP Pulse Ox 05/29/21 13:07 86 122/69 91 05/29/21 13:04 86 100 05/29/21 12:59 77 100 05/29/21 12:54 89 100 05/29/21 12:49 84 100 05/29/21 12:44 82 100 05/29/21 12:39 84 100 05/29/21 12:34 83 100 05/29/21 12:29 79 100 05/29/21 12:24 73 100 05/29/21 12:19 74 100 05/29/21 12:14 78 100 05/29/21 12:09 84 100 05/29/21 12:06 78 111/65 05/29/21 12:04 78 100 05/29/21 12:00 18 05/29/21 11:59 69 98 05/29/21 11:54 70 98 05/29/21 11:51 71 109/62 05/29/21 11:49 68 98 05/29/21 11:44 76 100 05/29/21 11:39 76 99 05/29/21 11:36 69 108/60 05/29/21 11:34 78 100 05/29/21 11:29 77 100 05/29/21 11:24 80 100 05/29/21 11:21 80 130/75 05/29/21 11:19 80 100 05/29/21 11:14 81 99 05/29/21 11:09 71 100 05/29/21 11:06 76 115/77 05/29/21 11:04 80 100 05/29/21 11:00 18 05/29/21 10:59 82 100 05/29/21 10:54 81 100 05/29/21 10:51 85 127/73 05/29/21 10:49 90 100 05/29/21 10:48 36.4 C L 05/29/21 10:44 81 100 05/29/21 10:41 20 05/29/21 10:39 83 100 05/29/21 10:36 71 122/69 05/29/21 10:34 75 100 05/29/21 10:29 86 100 05/29/21 10:24 80 100 05/29/21 10:21 75 128/74 05/29/21 10:19 79 100 05/29/21 10:14 84 100 05/29/21 10:09 80 100 05/29/21 10:06 82 135/79 05/29/21 10:04 83 100 05/29/21 09:59 81 100 05/29/21 09:54 81 100 05/29/21 09:52 81 134/79 05/29/21 09:49 80 100 05/29/21 09:44 81 100 05/29/21 09:39 81 100 05/29/21 09:36 82 146/70 H 05/29/21 09:34 82 100 05/29/21 09:29 89 100 05/29/21 09:24 74 100 05/29/21 09:21 77 145/82 H 05/29/21 09:19 81 100 05/29/21 09:14 82 100 05/29/21 09:09 81 100 05/29/21 09:06 70 138/82 05/29/21 09:04 72 100 05/29/21 08:59 86 100 05/29/21 08:54 77 100 05/29/21 08:49 83 100 05/29/21 08:48 80 143/87 H 05/29/21 07:50 91 H 157/87 H 98 05/29/21 07:47 85 145/89 H 05/29/21 07:46 85 87 L 05/29/21 07:45 80 97 05/29/21 07:44 97 H 149/89 H 05/29/21 07:41 86 156/90 H 05/29/21 07:40 106 H 98 05/29/21 07:39 103 H 93 05/29/21 07:38 104 H 150/90 H 05/29/21 07:35 88 139/79 97 05/29/21 07:33 96 H 140/86 05/29/21 07:32 86 93 05/29/21 07:30 81 98 05/29/21 07:29 85 151/78 H 05/29/21 07:26 86 163/79 H 05/29/21 07:25 102 H 98 05/29/21 07:20 87 161/71 H 98 05/29/21 07:17 100 H 151/70 H 91 05/29/21 07:15 80 98 05/29/21 07:14 91 H 158/81 H 05/29/21 07:11 81 143/74 H 05/29/21 07:10 83 99 05/29/21 07:07 84 93 05/29/21 07:06 81 145/87 H 05/29/21 07:05 84 97 05/29/21 07:02 84 134/87 05/29/21 07:01 85 93 05/29/21 07:00 79 99 05/29/21 06:59 82 164/95 H 05/29/21 06:56 82 145/101 H 05/29/21 06:55 87 99 05/29/21 06:54 85 144/86 H 05/29/21 06:50 85 98 05/29/21 06:45 86 99 05/29/21 06:40 69 98 05/29/21 06:38 68 127/78 05/29/21 06:35 69 133/81 97 05/29/21 06:32 69 133/79 05/29/21 06:30 69 97 05/29/21 06:29 68 128/82 05/29/21 06:26 67 132/87 05/29/21 06:25 70 97 05/29/21 06:23 68 130/82 05/29/21 06:20 71 130/81 97 05/29/21 06:17 77 130/83 05/29/21 06:15 88 98 05/29/21 06:14 73 131/84 05/29/21 06:11 83 135/95 05/29/21 06:10 86 98 05/29/21 06:08 75 131/80 05/29/21 06:05 71 129/80 98 05/29/21 06:02 74 132/77 05/29/21 06:00 36.7 C 81 18 99 05/29/21 05:59 74 131/72 05/29/21 05:56 85 142/75 H 05/29/21 05:55 89 99 05/29/21 05:54 102 H 163/93 H 05/29/21 05:51 88 157/96 H 05/29/21 05:50 91 H 91 05/29/21 05:47 111 H 139/71 05/29/21 05:45 101 H 98 05/29/21 05:44 76 143/72 H 05/29/21 05:41 93 H 147/70 H 05/29/21 05:40 108 H 99 05/29/21 05:38 115 H 144/66 H 87 L 05/29/21 05:35 87 160/74 H 100 05/29/21 05:33 96 H 150/71 H 05/29/21 05:31 92 H 93 05/29/21 05:30 85 99 05/29/21 05:29 89 132/73 05/29/21 05:26 110 H 132/75 05/29/21 05:25 95 H 99 05/29/21 05:23 96 H 146/76 H 05/29/21 05:20 95 H 150/80 H 100 05/29/21 05:17 86 133/80 05/29/21 05:15 67 99 05/29/21 05:14 71 137/82 05/29/21 05:11 69 132/81 05/29/21 05:10 70 99 05/29/21 05:08 70 135/83 05/29/21 05:05 78 138/90 100 05/29/21 05:02 86 123/93 05/29/21 05:00 84 20 100 05/29/21 04:59 75 126/85 05/29/21 04:56 70 131/77 05/29/21 04:55 73 100 05/29/21 04:53 71 130/79 05/29/21 04:50 85 141/84 H 100 05/29/21 04:47 74 132/74 05/29/21 04:45 80 100 05/29/21 04:44 71 135/83 05/29/21 04:40 75 99 05/29/21 04:38 66 135/91 05/29/21 04:35 64 99 03 04:30 73 99 05/29/21 04:25 84 100 05/29/21 04:22 79 133/84 05/29/21 04:20 68 97 05/29/21 04:15 76 97 05/29/21 04:10 37.0 C 72 16 97 05/29/21 04:06 67 129/76 05/29/21 04:05 67 98 05/29/21 04:00 67 16 97 05/29/21 03:55 66 98 05/29/21 03:51 66 138/80 05/29/21 03:50 67 98 05/29/21 03:45 66 98 05/29/21 03:40 65 98 05/29/21 03:36 65 130/81 05/29/21 03:35 68 99 05/29/21 03:30 66 98 05/29/21 03:25 74 98 05/29/21 03:23 77 139/83 05/29/21 03:20 73 97 05/29/21 03:15 78 98 05/29/21 03:10 74 98 05/29/21 03:07 75 135/82 05/29/21 03:05 74 98 05/29/21 03:00 83 99 05/29/21 02:55 89 98 05/29/21 02:52 82 132/95 05/29/21 02:50 91 H 99 05/29/21 02:45 67 96 05/29/21 02:40 67 96 05/29/21 02:37 66 137/85 05/29/21 02:35 65 96 05/29/21 02:30 65 97 05/29/21 02:25 65 97 05/29/21 02:23 63 134/87 05/29/21 02:20 66 97 05/29/21 02:15 65 96 05/29/21 02:10 36.8 C 67 16 96 05/29/21 02:08 78 134/83 05/29/21 02:05 66 97 05/29/21 02:00 65 16 97 05/29/21 01:55 76 96 05/29/21 01:52 65 133/84 05/29/21 01:50 67 97 05/29/21 01:45 67 96 05/29/21 01:40 67 96 05/29/21 01:37 66 135/83 05/29/21 01:35 69 99 05/29/21 01:30 78 97 05/29/21 01:25 67 96 05/29/21 01:23 74 130/82 05/29/21 01:20 88 98 05/29/21 01:15 75 97 05/29/21 01:10 68 96 PG Care Time/CCT Total # of Minutes Spent Total Time Spent with Patient: Total time spent is greater than 50% in coordination of care (as documented) at patient's floor/unit and/or counseling patient: Coding Level of Care Code 72229 Inpt Consult Level 4 Diagnoses Hypermagnesemia E83.41 JOSÉ LUIS (acute kidney injury) N17.9 Acute hyponatremia E87.1 Preeclampsia O14.90 36 weeks gestation of Z3A.36
[2021-05-29 13:58] LABS: Calcium 6.7 mg/dl (8.5-10.1); Creatinine Clr Calc Pharmacy 60.1 ml/min; Est GFR (African American) 50.4 ml/min; Est GFR (Non-African American) 43.5 ml/min; Potassium 4.4 mmol/L (3.5-5.1)
[2021-05-29 14:00] LABS: Magnesium Therapeutic L&D Only 7.9 mg/dL (4.0-8.0)
[2021-05-29 14:39] LABS: Appearance Urine Turbid (Clear); Bacteria Urine Automated Negative (Negative); Bilirubin Urine Negative (Negative); Blood Urine 3+ (Negative); Color Urine Dark Yellow; Glucose Urine UA Negative (Negative); Ketones Urine Trace (Negative); Leukocyte Esterase Urine 2+ (Negative); Nitrite Urine Negative (Negative); Protein Urine Trace (Negative); Specific Gravity Urine 1.019 (1.000-1.030); Urobilinogen Urine Negative (Negative); WBC Urine Automated >30 /hpf (0-5)
--- NOTE | 2021-05-29 14:58 | Obstetrical Progress Note ---
Date of Service May 29, 2021 spoke to hospitalist Restart Mag at 1g /hr as now 7.9 Held d/t JOSÉ LUIS and high levels. Assessment & Plan Admission and Anticipated Discharge Date Admission Date: May 29, 2021 Results & Data ([facility]) Vital Signs (Past 12 Hours) Vital Signs Temp Pulse Resp BP Pulse Ox 05/29/21 14:54 86 100 05/29/21 14:49 85 100 05/29/21 14:44 90 100 05/29/21 14:39 82 100 05/29/21 14:34 84 100 05/29/21 14:29 77 100 05/29/21 14:24 69 100 05/29/21 14:19 74 100 05/29/21 14:14 79 100 05/29/21 14:09 85 100 05/29/21 14:07 75 118/64 05/29/21 14:04 72 100 05/29/21 14:00 18 05/29/21 13:59 77 100 05/29/21 13:54 80 100 05/29/21 13:49 85 100 05/29/21 13:44 84 100 05/29/21 13:39 84 100 05/29/21 13:34 92 H 100 05/29/21 13:29 81 100 05/29/21 13:24 97.5 F L 81 20 100 05/29/21 13:19 94 H 100 05/29/21 13:14 85 100 05/29/21 13:09 86 100 05/29/21 13:07 86 122/69 91 05/29/21 13:04 86 100 05/29/21 13:00 20 05/29/21 12:59 77 100 05/29/21 12:54 89 100 05/29/21 12:49 84 100 05/29/21 12:44 82 100 05/29/21 12:39 84 100 05/29/21 12:34 83 100 05/29/21 12:29 79 100 05/29/21 12:24 73 100 05/29/21 12:19 74 100 05/29/21 12:14 78 100 05/29/21 12:09 84 100 05/29/21 12:06 78 111/65 05/29/21 12:04 78 100 05/29/21 12:00 18 05/29/21 11:59 69 98 05/29/21 11:54 70 98 05/29/21 11:51 71 109/62 05/29/21 11:49 68 98 05/29/21 11:44 76 100 05/29/21 11:39 76 99 05/29/21 11:36 69 108/60 05/29/21 11:34 78 100 05/29/21 11:29 77 100 05/29/21 11:24 80 100 05/29/21 11:21 80 130/75 05/29/21 11:19 80 100 05/29/21 11:14 81 99 05/29/21 11:09 71 100 05/29/21 11:06 76 115/77 05/29/21 11:04 80 100 05/29/21 11:00 18 05/29/21 10:59 82 100 05/29/21 10:54 81 100 05/29/21 10:51 85 127/73 05/29/21 10:49 90 100 05/29/21 10:48 97.5 F L 05/29/21 10:44 81 100 05/29/21 10:41 20 05/29/21 10:39 83 100 05/29/21 10:36 71 122/69 05/29/21 10:34 75 100 05/29/21 10:29 86 100 05/29/21 10:24 80 100 05/29/21 10:21 75 128/74 05/29/21 10:19 79 100 05/29/21 10:14 84 100 05/29/21 10:09 80 100 05/29/21 10:06 82 135/79 05/29/21 10:04 83 100 05/29/21 09:59 81 100 05/29/21 09:54 81 100 05/29/21 09:52 81 134/79 05/29/21 09:49 80 100 05/29/21 09:44 81 100 05/29/21 09:39 81 100 05/29/21 09:36 82 146/70 H 05/29/21 09:34 82 100 05/29/21 09:29 89 100 05/29/21 09:24 74 100 05/29/21 09:21 77 145/82 H 05/29/21 09:19 81 100 05/29/21 09:14 82 100 05/29/21 09:09 81 100 03/23/22 09:06 70 138/82 05/29/21 09:04 72 100 05/29/21 08:59 86 100 05/29/21 08:54 77 100 05/29/21 08:49 83 100 05/29/21 08:48 80 143/87 H 05/29/21 07:50 91 H 157/87 H 98 05/29/21 07:47 85 145/89 H 05/29/21 07:46 85 87 L 05/29/21 07:45 80 97 05/29/21 07:44 97 H 149/89 H 05/29/21 07:41 86 156/90 H 05/29/21 07:40 106 H 98 05/29/21 07:39 103 H 93 05/29/21 07:38 104 H 150/90 H 05/29/21 07:35 88 139/79 97 05/29/21 07:33 96 H 140/86 05/29/21 07:32 86 93 05/29/21 07:30 81 98 05/29/21 07:29 85 151/78 H 05/29/21 07:26 86 163/79 H 05/29/21 07:25 102 H 98 05/29/21 07:20 87 161/71 H 98 05/29/21 07:17 100 H 151/70 H 91 05/29/21 07:15 80 98 05/29/21 07:14 91 H 158/81 H 05/29/21 07:11 81 143/74 H 05/29/21 07:10 83 99 05/29/21 07:07 84 93 05/29/21 07:06 81 145/87 H 05/29/21 07:05 84 97 05/29/21 07:02 84 134/87 05/29/21 07:01 85 93 05/29/21 07:00 79 99 05/29/21 06:59 82 164/95 H 05/29/21 06:56 82 145/101 H 05/29/21 06:55 87 99 05/29/21 06:54 85 144/86 H 05/29/21 06:50 85 98 05/29/21 06:45 86 99 05/29/21 06:40 69 98 05/29/21 06:38 68 127/78 05/29/21 06:35 69 133/81 97 05/29/21 06:32 69 133/79 05/29/21 06:30 69 97 05/29/21 06:29 68 128/82 05/29/21 06:26 67 132/87 05/29/21 06:25 70 97 05/29/21 06:23 68 130/82 05/29/21 06:20 71 130/81 97 05/29/21 06:17 77 130/83 05/29/21 06:15 88 98 05/29/21 06:14 73 131/84 05/29/21 06:11 83 135/95 05/29/21 06:10 86 98 05/29/21 06:08 75 131/80 05/29/21 06:05 71 129/80 98 05/29/21 06:02 74 132/77 05/29/21 06:00 98.1 F 81 18 99 05/29/21 05:59 74 131/72 05/29/21 05:56 85 142/75 H 05/29/21 05:55 89 99 05/29/21 05:54 102 H 163/93 H 05/29/21 05:51 88 157/96 H 05/29/21 05:50 91 H 91 05/29/21 05:47 111 H 139/71 05/29/21 05:45 101 H 98 05/29/21 05:44 76 143/72 H 05/29/21 05:41 93 H 147/70 H 05/29/21 05:40 108 H 99 05/29/21 05:38 115 H 144/66 H 87 L 05/29/21 05:35 87 160/74 H 100 05/29/21 05:33 96 H 150/71 H 05/29/21 05:31 92 H 93 05/29/21 05:30 85 99 05/29/21 05:29 89 132/73 05/29/21 05:26 110 H 132/75 05/29/21 05:25 95 H 99 05/29/21 05:23 96 H 146/76 H 05/29/21 05:20 95 H 150/80 H 100 05/29/21 05:17 86 133/80 05/29/21 05:15 67 99 05/29/21 05:14 71 137/82 05/29/21 05:11 69 132/81 05/29/21 05:10 70 99 05/29/21 05:08 70 135/83 05/29/21 05:05 78 138/90 100 05/29/21 05:02 86 123/93 05/29/21 05:00 84 20 100 05/29/21 04:59 75 126/85 05/29/21 04:56 70 131/77 05/29/21 04:55 73 100 05/29/21 04:53 71 130/79 05/29/21 04:50 85 141/84 H 100 05/29/21 04:47 74 132/74 05/29/21 04:45 80 100 05/29/21 04:44 71 135/83 05/29/21 04:40 75 99 05/29/21 04:38 66 135/91 05/29/21 04:35 64 99 05/29/21 04:30 73 99 05/29/21 04:25 84 100 05/29/21 04:22 79 133/84 05/29/21 04:20 68 97 05/29/21 04:15 76 97 05/29/21 04:10 98.6 F 72 16 97 05/29/21 04:06 67 129/76 05/29/21 04:05 67 98 05/29/21 04:00 67 16 97 05/29/21 03:55 66 98 05/29/21 03:51 66 138/80 05/29/21 03:50 67 98 05/29/21 03:45 66 98 05/29/21 03:40 65 98 05/29/21 03:36 65 130/81 05/29/21 03:35 68 99 05/29/21 03:30 66 98 05/29/21 03:25 74 98 05/29/21 03:23 77 139/83 05/29/21 03:20 73 97 05/29/21 03:15 78 98 05/29/21 03:10 74 98 05/29/21 03:07 75 135/82 05/29/21 03:05 74 98 05/29/21 03:00 83 99 PG Care Time/CCT Total # of Minutes Spent Total Time Spent with Patient: Total time spent is greater than 50% in coordination of care (as documented) at patient's floor/unit and/or counseling patient: Coding Level of Care Code None
[2021-05-29 15:00] LABS: Creatinine Urine Random 119.2 mg/dl; Protein Creatinine Ratio Urine 0.4 (0-0.2)
[2021-05-29] MEDS ORDERED: MAGNESIUM SULFATE / WTR 40 GM/1,000 ML BAG IV SCH (15:00)
[2021-05-29 15:05] LABS: RBC Urine Automated >30 /hpf (0-4)
[2021-05-29] MEDS ORDERED: SODIUM CHLORIDE 3 % 50 ML IV ONE (15:10)
[2021-05-29] MEDS ORDERED: LACTATED RINGER'S 1,000 ML IV SCH (17:00)
[2021-05-29 18:45] LABS: Albumin Globulin Ratio 1.2 (0.9-2); Albumin Level 2.1 gm/dl (3.4-5.0); BUN Creatinine Ratio 13.9 (10-20); Bilirubin,Total 0.6 mg/dl (0.2-1.0); Calcium 6.6 mg/dl (8.5-10.1); Creatinine Clr Calc Pharmacy 57.2 ml/min; Est GFR (African American) 47.5 ml/min; Est GFR (Non-African American) 40.9 ml/min; Globulin 1.8 gm/dl (2.5-4.0); Potassium 4.8 mmol/L (3.5-5.1); Total Protein 3.9 gm/dl (6.0-8.3)
[2021-05-29] MEDS ORDERED: FUROSEMIDE INJ 20 MG/2 ML VIAL IV ONE (19:20)
--- NOTE | 2021-05-29 20:55 | Ultrasound Report ---
ULTRASOUND KIDNEYS AND BLADDER CLINICAL HISTORY: Acute renal insufficiency. COMPARISON STUDY: No priors. TECHNIQUE: Real-time, grayscale, and color flow sonography of the kidneys and bladder is performed. I mages are reviewed in the transverse and longitudinal planes. FINDINGS: Kidneys: The kidneys are normal in size and echotexture. The right kidney measures 10.4 cm in length and the left kidney measures 11.4 cm in length. There is mild left-sided hydronephrosis. No hydroneph rosis is seen on the right. No shadowing renal calculi are identified. There is no sonographic eviden ce of contour deforming renal mass lesion. No perinephric fluid is identified. Bladder: The bladder is decompressed around a Love catheter and could not be assessed. Upper abdomen: There is trace free fluid in the right upper quadrant. IMPRESSION: 1. The kidneys are normal in size. 2. There is mild left-sided hydronephrosis. 3. No hydronephrosis is seen on the right. 4. The bladder is decompressed around a Love catheter and cannot be assessed. 5. Trace free fluid is seen in the right upper quadrant. ACT 112: Negative or not required by law. Electronically signed by: Jonah Field M.D. 05/29/2021 8:54 PM
[2021-05-29] MEDS: DOCUSATE SODIUM 100 MG CAP PO SCH (21:00)
[2021-05-30] MEDS ORDERED: SODIUM CHLORIDE 0.65% NA SOLN 45 ML (OCEAN) PRN (00:06)
[2021-05-30] MEDS ORDERED: SODIUM CHLORIDE 0.65% NA SOLN 45 ML (OCEAN) ONE (00:45)
[2021-05-30 01:21] LABS: BUN Creatinine Ratio 15.2 (10-20); Calcium 6.7 mg/dl (8.5-10.1); Creatinine Clr Calc Pharmacy 57.2 ml/min; Est GFR (African American) 47.5 ml/min; Est GFR (Non-African American) 40.9 ml/min
[2021-05-30] MEDS ORDERED: SODIUM CHLORIDE 3 % 100 ML IV ONE (01:30)
--- NOTE | 2021-05-30 03:52 | Obstetrical Progress Note ---
Date of Service May 30, 2021 Assessment & Plan (1) Acute hyponatremia: Preeclampsia with suspected severe features and delivered yesterday morning at approximately 7:30 AM her course has been somewhat tortuous with regard to acute kidney injury with elevated creatinine levels which are stable but are in the 1.6 range. She also has significant hyponatremia this is being managed by the medical team at this time. Should be noted that she has been off magnesium since yesterday as she was running excessively high levels likely due to poor kidney clearance. At this stage she is doing well otherwise we will continue to have the electrolyte imbalances managed by the medical team (2) JOSÉ LUIS (acute kidney injury): Results & Data ([facility]) Vital Signs (Past 12 Hours) Vital Signs Temp Pulse Resp BP Pulse Ox 05/30/21 03:49 75 95 05/30/21 03:44 77 96 05/30/21 03:39 75 96 05/30/21 03:34 77 96 05/30/21 03:29 77 96 05/30/21 03:25 16 05/30/21 03:24 76 95 05/30/21 03:19 92 H 97 05/30/21 03:14 80 95 05/30/21 03:09 80 95 05/30/21 03:07 80 16 137/75 05/30/21 03:04 87 94 05/30/21 02:59 86 96 05/30/21 02:56 83 94 05/30/21 02:54 82 95 05/30/21 02:49 80 96 05/30/21 02:44 90 96 05/30/21 02:42 82 93 05/30/21 02:39 81 95 05/30/21 02:36 88 94 05/30/21 02:34 84 96 05/30/21 02:29 79 95 05/30/21 02:24 78 96 05/30/21 02:19 80 95 05/30/21 02:14 78 96 05/30/21 02:09 81 95 05/30/21 02:07 80 139/79 05/30/21 02:05 16 05/30/21 02:04 78 98 05/30/21 01:59 78 96 05/30/21 01:58 78 92 05/30/21 01:54 74 95 05/30/21 01:52 77 94 05/30/21 01:49 75 95 05/30/21 01:46 76 94 05/30/21 01:44 75 96 05/30/21 01:40 74 94 05/30/21 01:39 75 95 05/30/21 01:34 72 95 05/30/21 01:30 74 94 05/30/21 01:29 74 94 05/30/21 01:25 76 94 05/30/21 01:24 75 95 05/30/21 01:19 74 95 05/30/21 01:14 73 96 05/30/21 01:09 73 96 05/30/21 01:06 71 126/75 05/30/21 01:04 71 96 05/30/21 00:59 70 96 05/30/21 00:54 72 18 97 05/30/21 00:49 80 98 05/30/21 00:44 73 97 05/30/21 00:39 80 98 05/30/21 00:34 81 97 05/30/21 00:29 82 98 05/30/21 00:24 80 97 05/30/21 00:19 83 98 05/30/21 00:14 85 98 05/30/21 00:09 83 97 05/30/21 00:07 80 149/79 H 05/30/21 00:04 84 97 05/30/21 00:00 18 05/29/21 23:59 82 97 0322 23:54 84 97 05/29/21 23:49 83 97 22 23:44 83 97 22 23:39 85 97 0322 23:34 84 97 22 23:29 80 97 0322 23:24 78 97 2322 23:19 75 96 22 23:14 91 H 97 0322 23:09 95 H 97 0322 23:06 82 125/72 0322 23:04 87 97 0322 23:00 98.1 F 16 22 22:59 74 95 22 22:54 73 96 0322 22:49 70 96 032322 22:44 70 96 0322 22:39 74 97 2322 22:34 79 98 0322 22:29 68 97 03 22:24 68 98 03 22:19 72 99 03 22:14 80 100 03 22:09 82 100 03 22:07 76 141/78 H 05/29/21 22:04 82 100 03 22:00 18 03 21:59 79 100 0322 21:54 84 100 0322 21:49 81 100 0322 21:44 82 100 0322 21:39 81 100 0322 21:34 89 100 03 21:29 85 100 05/29/21 21:24 83 100 05/29/21 21:19 82 100 05/29/21 21:14 88 100 05/29/21 21:09 78 100 05/29/21 21:07 76 147/75 H 05/29/21 21:04 83 100 03 21:00 16 05/29/21 20:59 82 100 05/29/21 20:54 89 100 22 20:49 71 100 05/29/21 20:44 75 100 0322 20:39 83 100 05/29/21 20:34 75 100 05/29/21 20:29 78 100 05/29/21 20:24 86 100 05/29/21 20:19 81 100 05/29/21 20:14 76 100 05/29/21 20:09 82 100 03 20:07 83 120/97 05/29/21 20:04 83 100 05/29/21 20:00 16 05/29/21 19:59 89 100 0322 19:54 87 100 0322 19:49 93 H 99 032322 19:44 111 H 98 2322 19:39 78 99 0322 19:34 73 98 22 19:29 80 99 0322 19:24 74 98 22 19:19 81 99 0322 19:14 87 100 0322 19:09 87 100 0322 19:07 83 135/89 22 19:04 86 100 05/29/21 19:00 98.1 F 14 05/29/21 18:59 80 98 05/29/21 18:54 78 98 05/29/21 18:49 74 97 05/29/21 18:44 73 97 05/29/21 18:39 70 97 05/29/21 18:34 71 98 05/29/21 18:29 70 99 05/29/21 18:24 67 99 05/29/21 18:19 72 100 05/29/21 18:14 88 100 05/29/21 18:09 86 100 05/29/21 18:08 16 05/29/21 18:07 69 121/67 05/29/21 18:04 81 98 05/29/21 17:59 75 98 05/29/21 17:54 71 98 05/29/21 17:49 73 96 05/29/21 17:44 70 96 05/29/21 17:39 73 95 05/29/21 17:34 72 96 05/29/21 17:29 72 96 05/29/21 17:28 97.3 F L 05/29/21 17:24 72 96 05/29/21 17:19 73 97 05/29/21 17:14 72 96 05/29/21 17:09 73 97 05/29/21 17:04 74 96 05/29/21 17:00 14 05/29/21 16:59 74 96 05/29/21 16:54 72 98 05/29/21 16:49 73 98 05/29/21 16:44 76 98 05/29/21 16:39 75 98 05/29/21 16:34 75 100 05/29/21 16:29 73 98 05/29/21 16:24 74 98 05/29/21 16:19 73 98 05/29/21 16:14 72 99 05/29/21 16:09 71 99 05/29/21 16:07 70 109/61 05/29/21 16:04 71 99 05/29/21 16:00 20 05/29/21 15:59 70 99 05/29/21 15:54 70 99
[2021-05-30 07:30] LABS: Hematocrit (blood only) 21.5 % (37-47); Hemoglobin 7.5 g/dL (12.0-16.0); Mean Corpuscular Hemoglobin 31.4 pg (25-34); Mean Corpuscular Hgb Conc 34.9 g/dL (32-36); Mean Platelet Volume 12.2 fL (7.4-10.4); Nucleated RBC # (auto) 0.19 K/uL (0-0); Nucleated RBC % (auto) 1.6 %; Platelet Count 184 K/uL (130-400); RDW Coefficient of Variation 14.2 % (11.5-14.5); RDW Standard Deviation 46.8 fL (36.4-46.3); Red Blood Count 2.39 M/uL (4.2-5.4)
--- NOTE | 2021-05-30 07:34 | Obstetrical Progress Note ---
Date of Service <Emmy Cook MD - Last Filed: 05/30/21 07:34> May 30, 2021 Assessment & Plan <Emmy Cook MD - Last Filed: 05/30/21 07:34> (1) Encounter for care and examination after delivery: PPD 1: management of preeclampsia with renal insufficiency, disturbances, hypermagnesemia, and hyponatremiacurrently improving * Preeclampsiapatient currently without severe features. Overnight blood pressures mostly below target range. Currently on furosemide 20 mg twice daily as needed for fluid overload/elevated pressure. Platelet count 184 today, down from 265 yesterday. * Insufficiencycreatinine of 1.65 yesterday. A.M. CMP pending. Currently on with mag. * patient voiding into Love catheter, currently on bedrest * pain well controlled on analgesia * tolerating regular diet * * Observe on L&D today. Reassess tomorrow <Good Bonilla MD, FACOG - Last Filed: 05/31/21 08:10> (1) Encounter for care and examination after delivery: Subjective <Emmy Cook MD - Last Filed: 05/30/21 07:34> Remains a 30-year-old who is now PPD 1 following spontaneous vaginal delivery and vacuum assisted vaginal delivery for twins at 36.1 weeks. period was complicated by preeclampsia with some severe features (vision changes, renal insufficiency). Feeling better this morning. Denies abdominal cramping pain, but is a bit "gassy." Voiding into Love catheter. Tolerating meals well but is currently restricted to her bed. Minimal bleeding this morning. . Review of Systems Denies fever, chills, sweats Denies shortness of breath, difficulty breathing, chest pain, palpitations, chest pressure. Denies breast pain. Denies dysuria. Denies headache or changes in vision Physical Exam <Emmy Cook MD - Last Filed: 05/30/21 07:34> General: Alert, oriented. No acute distress. Cardiac: Regular rate and rhythm, no murmurs/rubs/gallops. Respiratory: Clear to auscultation bilaterally a/p, no wheezes/rales/rhonchi. No increased work of breathing. Symmetrical chest rise. No respiratory distress. Abdomen: Soft, nontender, nondistended. Bowel sounds present. Uterus: Uterine fundus firm, palpable above umbilicus. Lower Extremities: No lower extremity edema or swelling. No deep calf pain. Kaushal's negative bilaterally.. Results & Data ([facility]) <Emmy Cook MD - Last Filed: 05/30/21 07:34> Vital Signs (Past 12 Hours) Vital Signs Temp Pulse Resp BP Pulse Ox 05/30/21 07:14 80 99 05/30/21 07:09 83 99 05/30/21 07:07 79 147/84 H 05/30/21 07:04 87 99 05/30/21 06:59 77 97 05/30/21 06:54 83 98 05/30/21 06:49 88 97 05/30/21 06:44 91 H 98 05/30/21 06:39 87 95 05/30/21 06:34 77 96 05/30/21 06:29 79 96 05/30/21 06:24 84 97 05/30/21 06:19 77 97 05/30/21 06:14 87 97 05/30/21 06:09 77 96 05/30/21 06:06 76 137/80 05/30/21 06:04 77 97 05/30/21 05:59 73 96 05/30/21 05:54 77 97 05/30/21 05:49 85 98 05/30/21 05:44 79 96 05/30/21 05:39 78 96 05/30/21 05:34 82 96 05/30/21 05:29 74 96 05/30/21 05:24 79 96 05/30/21 05:22 78 91 05/30/21 05:19 81 93 05/30/21 05:15 16 05/30/21 05:14 79 97 05/30/21 05:09 79 95 05/30/21 05:06 74 137/73 05/30/21 05:04 77 96 05/30/21 04:59 77 96 05/30/21 04:54 78 95 05/30/21 04:49 77 96 05/30/21 04:44 76 96 05/30/21 04:39 75 97 05/30/21 04:34 75 96 05/30/21 04:29 77 96 05/30/21 04:24 75 96 05/30/21 04:19 73 96 05/30/21 04:14 83 91 05/30/21 04:12 76 89 L 05/30/21 04:09 76 93 05/30/21 04:06 77 141/78 H 94 05/30/21 04:05 16 05/30/21 04:04 78 96 05/30/21 03:59 74 93 05/30/21 03:54 77 96 05/30/21 03:49 75 95 05/30/21 03:44 77 96 05/30/21 03:39 75 96 05/30/21 03:34 77 96 05/30/21 03:29 77 96 05/30/21 03:25 36.9 C 16 05/30/21 03:24 76 95 05/30/21 03:19 92 H 97 05/30/21 03:14 80 95 05/30/21 03:09 80 95 05/30/21 03:07 80 16 137/75 05/30/21 03:04 87 94 05/30/21 02:59 86 96 05/30/21 02:56 83 94 05/30/21 02:54 82 95 05/30/21 02:49 80 96 05/30/21 02:44 90 96 05/30/21 02:42 82 93 05/30/21 02:39 81 95 05/30/21 02:36 88 94 05/30/21 02:34 84 96 05/30/21 02:29 79 95 05/30/21 02:24 78 96 05/30/21 02:19 80 95 05/30/21 02:14 78 96 05/30/21 02:09 81 95 05/30/21 02:07 80 139/79 05/30/21 02:05 16 05/30/21 02:04 78 98 05/30/21 01:59 78 96 05/30/21 01:58 78 92 05/30/21 01:54 74 95 05/30/21 01:52 77 94 05/30/21 01:49 75 95 05/30/21 01:46 76 94 22 01:44 75 96 22 01:40 74 94 22 01:39 75 95 05/30/21 01:34 72 95 05/30/21 01:30 74 94 05/30/21 01:29 74 94 05/30/21 01:25 76 94 05/30/21 01:24 75 95 05/30/21 01:19 74 95 05/30/21 01:14 73 96 05/30/21 01:09 73 96 05/30/21 01:06 71 126/75 05/30/21 01:04 71 96 05/30/21 00:59 70 96 05/30/21 00:54 72 18 97 05/30/21 00:49 80 98 05/30/21 00:44 73 97 05/30/21 00:39 80 98 05/30/21 00:34 81 97 05/30/21 00:29 82 98 05/30/21 00:24 80 97 05/30/21 00:19 83 98 05/30/21 00:14 85 98 05/30/21 00:09 83 97 05/30/21 00:07 80 149/79 H 05/30/21 00:04 84 97 05/30/21 00:00 18 05/29/21 23:59 82 97 2322 23:54 84 97 22 23:49 83 97 0322 23:44 83 97 0322 23:39 85 97 22 23:34 84 97 22 23:29 80 97 22 23:24 78 97 22 23:19 75 96 22 23:14 91 H 97 22 23:09 95 H 97 22 23:06 82 125/72 22 23:04 87 97 0322 23:00 36.7 C 16 22 22:59 74 95 032322 22:54 73 96 2322 22:49 70 96 032322 22:44 70 96 2322 22:39 74 97 032322 22:34 79 98 0322 22:29 68 97 22 22:24 68 98 032322 22:19 72 99 22 22:14 80 100 032322 22:09 82 100 032322 22:07 76 141/78 H 05/29/21 22:04 82 100 05/29/21 22:00 18 05/29/21 21:59 79 100 05/29/21 21:54 84 100 05/29/21 21:49 81 100 05/29/21 21:44 82 100 05/29/21 21:39 81 100 05/29/21 21:34 89 100 05/29/21 21:29 85 100 05/29/21 21:24 83 100 05/29/21 21:19 82 100 05/29/21 21:14 88 100 05/29/21 21:09 78 100 05/29/21 21:07 76 147/75 H 05/29/21 21:04 83 100 05/29/21 21:00 16 05/29/21 20:59 82 100 05/29/21 20:54 89 100 05/29/21 20:49 71 100 05/29/21 20:44 75 100 05/29/21 20:39 83 100 05/29/21 20:34 75 100 05/29/21 20:29 78 100 05/29/21 20:24 86 100 05/29/21 20:19 81 100 05/29/21 20:14 76 100 05/29/21 20:09 82 100 05/29/21 20:07 83 120/97 05/29/21 20:04 83 100 05/29/21 20:00 16 05/29/21 19:59 89 100 05/29/21 19:54 87 100 05/29/21 19:49 93 H 99 05/29/21 19:44 111 H 98 05/29/21 19:39 78 99 05/29/21 19:34 73 98 05/29/21 19:29 80 99 05/29/21 19:24 74 98 <Good Bonilla MD, FACOG - Last Filed: 05/31/21 08:10> Co-Signing Physician Notes It was noted that the patient was significantly anemic in the morning this was relayed to the team and a repeat hemoglobin was planned for later Resident Activity Tracking <Emmy Cook MD - Last Filed: 05/30/21 07:34> Resident Involvement: Resident Care Provided Care Provided: OB Delivery
[2021-05-30 07:53] LABS: BUN Creatinine Ratio 16.2 (10-20); Calcium 6.6 mg/dl (8.5-10.1); Creatinine Clr Calc Pharmacy 56.5 ml/min; Est GFR (African American) 46.8 ml/min; Est GFR (Non-African American) 40.4 ml/min
[2021-05-30 08:07] LABS: Albumin Globulin Ratio 1.2 (0.9-2); Albumin Level 2.2 gm/dl (3.4-5.0); Bilirubin,Total 0.5 mg/dl (0.2-1.0); Globulin 1.9 gm/dl (2.5-4.0); Magnesium 5.5 mg/dl (1.7-2.4); Total Protein 4.1 gm/dl (6.0-8.3)
[2021-05-30] MEDS: ACETAMINOPHEN 325 MG TAB PO PRN ×2 (08:47→18:16)
[2021-05-30] MEDS: PRENATAL VITAMIN 1 TAB PO SCH (08:47)
[2021-05-30] MEDS: DOCUSATE SODIUM 100 MG CAP PO SCH ×2 (08:47→21:02)
[2021-05-30] MEDS: SODIUM CHLORIDE 1 GM TABLET PO SCH ×2 (10:26→21:02)
--- NOTE | 2021-05-30 14:43 | Hospitalist Progress Note ---
Date of Service May 30, 2021 Assessment & Plan (1) 36 weeks gestation of : Plan: s/p delivery by induction 05/29 - diamniotic dichorionic twin gestation delivery @ 36 weeks with induction pre delivery did have elevated BP, Acute Kidney Injury, Hyponatremia post has anemia, will check some labs for hemolysis but maybe acute blood loss with delivery, in any course did discuss transfusion as will also benefit JOSÉ LUIS Initial urine electrolytes FeNA suggests pre renal distress of kidney, and will have nephrology to have consideration of some additional ivf as Na is correcting (2) JOSÉ LUIS (acute kidney injury): Plan: maybe from htn has not worsened and is stable, urine sediment is no active to suggest nephritis, will have nephrology weigh in US renal no medical renal disease suggested no obstructive cause Love catheter in place Avoid NSAIDs - had one dose of ibuprofen on admit Discussed care with Dr Chang (3) Anemia: Plan: Pt with drop of HGB about 50%, maybe from delivery but is BP falls to consider eval for internal bleeding can be with non contrast CT, recommend transfuse 2 u prbc and follow hgb expectantly (4) Preeclampsia: Plan: blood pressure has stabilized, renal function not worsening maybe ATN from prerenal issues as FeNa suggests Mg sulphate management per obstetrics (5) Hypermagnesemia: Plan: Mg sulphate appropriately discontinued however no sign of Mg toxicity at the current time. Will repeat level with next set of labs (6) Acute hyponatremia: Plan: was given hypertonic saline, correcting, no on oral salt tablets likley to stop especially if giving IVF contiaing sodium Plan: VTE Prophylaxis - per primary obstetrics team Diet - per primary obstetrics team Disposition - continued admission on L&D Admission and Anticipated Discharge Date Admission Date: May 29, 2021 Subjective this pt was resting comfortably with her babies and in the room, she is in no distress and was eating and drinking without issue, this am labs with little change even with hypertonic saline, did start sodium chloride tablets and will recheck in afternoon, if renal function is still up consider ivf either LR or normasol. Review of Systems Review of Systems: Mild distress and fatigue no headache, no visual changes no speech or swallowing issues no chest pain, pressure or palpitations no shortness of breath, cough or wheezes mild expected abdominal pain no dysuria, hematuria or frequency typical post vaginal discharge no focal joint pain still with peripheral swelling no back pain, CVA tenderness or radicular pain no bruising, bleeding or rashes no focal signs of weakness or numbness or altered sensation no complaints of anxiety or depression.. Physical Exam Physical Exam: The patient appeared well is appear mildly pale consistent with her anemia Vital signs as documented. Pressures improved Lungs appear unlabored Cardiac exam, Rhythm is regular.. No murmurs, rubs or gallops.Abdominal exam reveals normal bowel sounds, soft non tender, no masses Extremities are edematous upper and lower extremities and both pedal pulses are normal. Neurologic exam is alert and oriented, no focal loss of strength or sensation Skin is without bruises or rashes Psychologically is without concerns for anxiety or depression. Results & Data Results & Data ([facility]) Vital Signs (Past 12 Hours) Vital Signs Temp Pulse Resp BP Pulse Ox 05/30/21 14:39 85 98 05/30/21 14:34 88 98 05/30/21 14:29 86 98 05/30/21 14:24 85 98 05/30/21 14:19 88 98 05/30/21 14:14 83 98 05/30/21 14:09 80 98 05/30/21 14:07 84 150/85 H 05/30/21 14:04 87 98 05/30/21 13:59 88 98 05/30/21 13:54 91 H 98 05/30/21 13:49 94 H 97 05/30/21 13:44 97 H 98 05/30/21 13:39 95 H 98 05/30/21 13:34 86 98 05/30/21 13:29 78 98 05/30/21 13:24 81 98 05/30/21 13:19 82 97 05/30/21 13:14 90 98 05/30/21 13:09 87 97 05/30/21 13:07 86 127/69 05/30/21 13:04 88 97 05/30/21 12:59 91 H 98 05/30/21 12:54 88 97 05/30/21 12:49 100 H 96 05/30/21 12:44 88 97 05/30/21 12:39 88 98 05/30/21 12:34 86 97 05/30/21 12:29 98 H 97 05/30/21 12:24 91 H 98 05/30/21 12:19 85 98 03/24/22 12:14 88 97 03 12:09 83 97 03 12:06 85 140/84 03 12:04 85 98 05/30/21 11:59 93 H 98 0322 11:54 87 98 05/30/21 11:49 91 H 98 03 11:44 89 98 03 11:39 87 98 05/30/21 11:34 88 98 05/30/21 11:29 81 98 03 11:24 88 99 05/30/21 11:19 87 98 05/30/21 11:14 91 H 98 05/30/21 11:09 91 H 98 03 11:06 92 H 140/91 05/30/21 11:04 90 98 05/30/21 11:00 98.8 F 20 05/30/21 10:59 89 98 05/30/21 10:54 94 H 98 05/30/21 10:49 97 H 98 05/30/21 10:44 95 H 97 05/30/21 10:39 96 H 98 05/30/21 10:34 90 98 05/30/21 10:29 100 H 98 05/30/21 10:24 88 98 05/30/21 10:19 88 98 05/30/21 10:14 91 H 98 05/30/21 10:09 91 H 98 05/30/21 10:07 92 H 162/95 H 05/30/21 10:04 89 98 05/30/21 09:59 90 98 05/30/21 09:54 87 98 05/30/21 09:49 89 98 05/30/21 09:44 95 H 97 05/30/21 09:39 83 98 05/30/21 09:34 90 98 24 09:29 89 98 05/30/21 09:24 85 99 05/30/21 09:19 89 98 05/30/21 09:14 94 H 97 05/30/21 09:09 90 99 03 09:07 91 H 150/84 H 03 09:04 102 H 98 05/30/21 09:00 18 05/30/21 08:59 90 98 05/30/21 08:54 94 H 97 05/30/21 08:49 100 H 97 05/30/21 08:44 92 H 97 05/30/21 08:39 95 H 97 05/30/21 08:34 89 97 05/30/21 08:29 85 98 05/30/21 08:24 77 97 05/30/21 08:19 80 96 05/30/21 08:14 72 96 05/30/21 08:09 75 96 05/30/21 08:06 74 134/72 05/30/21 08:04 76 96 05/30/21 08:00 20 05/30/21 07:59 74 97 05/30/21 07:54 73 96 05/30/21 07:49 70 95 05/30/21 07:44 72 96 05/30/21 07:39 73 96 05/30/21 07:34 75 98 05/30/21 07:29 76 98 05/30/21 07:24 92 H 97 05/30/21 07:19 83 99 05/30/21 07:15 98.8 F 20 05/30/21 07:14 80 99 05/30/21 07:09 83 99 05/30/21 07:07 79 147/84 H 05/30/21 07:04 87 99 05/30/21 06:59 77 97 05/30/21 06:54 83 98 05/30/21 06:49 88 97 05/30/21 06:44 91 H 98 05/30/21 06:39 87 95 05/30/21 06:34 77 96 05/30/21 06:29 79 96 05/30/21 06:24 84 97 05/30/21 06:19 77 97 05/30/21 06:14 87 97 05/30/21 06:09 77 96 05/30/21 06:06 76 137/80 05/30/21 06:04 77 97 05/30/21 05:59 73 96 05/30/21 05:54 77 97 05/30/21 05:49 85 98 05/30/21 05:44 79 96 05/30/21 05:39 78 96 05/30/21 05:34 82 96 05/30/21 05:29 74 96 05/30/21 05:24 79 96 05/30/21 05:22 78 91 05/30/21 05:19 81 93 05/30/21 05:15 16 05/30/21 05:14 79 97 05/30/21 05:09 79 95 05/30/21 05:06 74 137/73 05/30/21 05:04 77 96 05/30/21 04:59 77 96 05/30/21 04:54 78 95 05/30/21 04:49 77 96 05/30/21 04:44 76 96 05/30/21 04:39 75 97 05/30/21 04:34 75 96 05/30/21 04:29 77 96 05/30/21 04:24 75 96 05/30/21 04:19 73 96 05/30/21 04:14 83 91 05/30/21 04:12 76 89 L 05/30/21 04:09 76 93 05/30/21 04:06 77 141/78 H 94 05/30/21 04:05 16 05/30/21 04:04 78 96 05/30/21 03:59 74 93 05/30/21 03:54 77 96 05/30/21 03:49 75 95 05/30/21 03:44 77 96 05/30/21 03:39 75 96 05/30/21 03:34 77 96 05/30/21 03:29 77 96 05/30/21 03:25 98.4 F 16 05/30/21 03:24 76 95 05/30/21 03:19 92 H 97 05/30/21 03:14 80 95 05/30/21 03:09 80 95 05/30/21 03:07 80 16 137/75 05/30/21 03:04 87 94 05/30/21 02:59 86 96 05/30/21 02:56 83 94 05/30/21 02:54 82 95 05/30/21 02:49 80 96 05/30/21 02:44 90 96 PG Care Time/CCT Total # of Minutes Spent Total Time Spent with Patient: Total time spent is greater than 50% in coordination of care (as documented) at patient's floor/unit and/or counseling patient: Coding Level of Care Code 54113 Subseq Hosp Care Lvl 2 Diagnoses 36 weeks gestation of Z3A.36 Preeclampsia O14.90 Hypermagnesemia E83.41 JOSÉ LUIS (acute kidney injury) N17.9 Acute hyponatremia E87.1 Anemia D64.9
[2021-05-30 14:49] LABS: Hematocrit (blood only) 18.8 % (37-47); Hemoglobin 6.7 g/dL (12.0-16.0); Mean Corpuscular Hemoglobin 31.9 pg (25-34); Mean Corpuscular Hgb Conc 35.6 g/dL (32-36); Mean Corpuscular Volume 89.5 fL (80-100); Mean Platelet Volume 12.1 fL (7.4-10.4); Nucleated RBC # (auto) 0.22 K/uL (0-0); Nucleated RBC % (auto) 1.9 %; Platelet Count 198 K/uL (130-400); RDW Coefficient of Variation 14.4 % (11.5-14.5); RDW Standard Deviation 46.9 fL (36.4-46.3); White Blood Count 11.84 K/uL (4.8-10.8)
[2021-05-30] MEDS ORDERED: SODIUM CHLORIDE 0.9% 250 ML IV PRN (15:02)
--- NOTE | 2021-05-30 15:27 | Obstetrical Progress Note ---
Date of Service May 30, 2021 Assessment & Plan Admission and Anticipated Discharge Date Admission Date: May 29, 2021 Miguel Alonso is a 30-year-old day 2 status post vacuum assisted vaginal delivery of twins. delivery course complicated by preeclampsia with severe features. Patient has had elevated creatinine which has stabilized but has new onset anemia of unclear etiology. patient's H/ H is 6.7 /18.8. recommended transfusion with Gavin today and signed consents forms for the transfusion. Risk of transfusion specifically reviewed. To reports that she is feeling well denies any particular symptoms. Patient is having very normal bleeding and uterus has been consistently firm and below the umbilicus. Labs to further evaluate cause of anemia and patient's renal function are pending. discussed potential causes of the elevated creatinine and anemia answered questions the patient's satisfaction. Results & Data ([facility]) Vital Signs (Past 12 Hours) Vital Signs Temp Pulse Resp BP Pulse Ox 05/30/21 15:24 83 98 05/30/21 15:19 87 99 05/30/21 15:14 95 H 98 05/30/21 15:10 82 139/80 05/30/21 15:09 85 98 05/30/21 15:04 86 99 05/30/21 14:59 86 99 05/30/21 14:54 83 98 05/30/21 14:49 84 98 05/30/21 14:44 88 98 05/30/21 14:39 85 98 05/30/21 14:34 88 98 05/30/21 14:29 86 98 05/30/21 14:24 85 98 05/30/21 14:19 88 98 05/30/21 14:14 83 98 05/30/21 14:09 80 98 05/30/21 14:07 84 150/85 H 05/30/21 14:04 87 98 05/30/21 13:59 88 98 05/30/21 13:54 91 H 98 05/30/21 13:49 94 H 97 05/30/21 13:44 97 H 98 05/30/21 13:39 95 H 98 05/30/21 13:34 86 98 05/30/21 13:29 78 98 05/30/21 13:24 81 98 05/30/21 13:19 82 97 05/30/21 13:14 90 98 05/30/21 13:09 87 97 0322 13:07 86 127/69 0324/22 13:04 88 97 032422 12:59 91 H 98 0322 12:54 88 97 22 12:49 100 H 96 22 12:44 88 97 22 12:39 88 98 05/30/21 12:34 86 97 05/30/21 12:29 98 H 97 05/30/21 12:24 91 H 98 05/30/21 12:19 85 98 0322 12:14 88 97 05/30/21 12:09 83 97 05/30/21 12:06 85 140/84 05/30/21 12:04 85 98 05/30/21 11:59 93 H 98 05/30/21 11:54 87 98 05/30/21 11:49 91 H 98 05/30/21 11:44 89 98 05/30/21 11:39 87 98 05/30/21 11:34 88 98 05/30/21 11:29 81 98 05/30/21 11:24 88 99 05/30/21 11:19 87 98 05/30/21 11:14 91 H 98 05/30/21 11:09 91 H 98 05/30/21 11:06 92 H 140/91 05/30/21 11:04 90 98 05/30/21 11:00 37.1 C 20 05/30/21 10:59 89 98 05/30/21 10:54 94 H 98 05/30/21 10:49 97 H 98 05/30/21 10:44 95 H 97 05/30/21 10:39 96 H 98 22 10:34 90 98 22 10:29 100 H 98 22 10:24 88 98 22 10:19 88 98 22 10:14 91 H 98 0322 10:09 91 H 98 05/30/21 10:07 92 H 162/95 H 22 10:04 89 98 22 09:59 90 98 032422 09:54 87 98 22 09:49 89 98 22 09:44 95 H 97 22 09:39 83 98 0322 09:34 90 98 05/30/21 09:29 89 98 05/30/21 09:24 85 99 05/30/21 09:19 89 98 05/30/21 09:14 94 H 97 05/30/21 09:09 90 99 05/30/21 09:07 91 H 150/84 H 05/30/21 09:04 102 H 98 05/30/21 09:00 18 05/30/21 08:59 90 98 05/30/21 08:54 94 H 97 05/30/21 08:49 100 H 97 05/30/21 08:44 92 H 97 05/30/21 08:39 95 H 97 05/30/21 08:34 89 97 05/30/21 08:29 85 98 05/30/21 08:24 77 97 05/30/21 08:19 80 96 05/30/21 08:14 72 96 05/30/21 08:09 75 96 05/30/21 08:06 74 134/72 05/30/21 08:04 76 96 05/30/21 08:00 20 05/30/21 07:59 74 97 05/30/21 07:54 73 96 05/30/21 07:49 70 95 05/30/21 07:44 72 96 05/30/21 07:39 73 96 05/30/21 07:34 75 98 05/30/21 07:29 76 98 05/30/21 07:24 92 H 97 05/30/21 07:19 83 99 05/30/21 07:15 37.1 C 20 05/30/21 07:14 80 99 05/30/21 07:09 83 99 05/30/21 07:07 79 147/84 H 05/30/21 07:04 87 99 05/30/21 06:59 77 97 05/30/21 06:54 83 98 05/30/21 06:49 88 97 05/30/21 06:44 91 H 98 05/30/21 06:39 87 95 05/30/21 06:34 77 96 05/30/21 06:29 79 96 05/30/21 06:24 84 97 05/30/21 06:19 77 97 05/30/21 06:14 87 97 05/30/21 06:09 77 96 05/30/21 06:06 76 137/80 05/30/21 06:04 77 97 05/30/21 05:59 73 96 05/30/21 05:54 77 97 05/30/21 05:49 85 98 05/30/21 05:44 79 96 05/30/21 05:39 78 96 05/30/21 05:34 82 96 05/30/21 05:29 74 96 05/30/21 05:24 79 96 05/30/21 05:22 78 91 05/30/21 05:19 81 93 05/30/21 05:15 16 05/30/21 05:14 79 97 05/30/21 05:09 79 95 05/30/21 05:06 74 137/73 05/30/21 05:04 77 96 05/30/21 04:59 77 96 05/30/21 04:54 78 95 05/30/21 04:49 77 96 05/30/21 04:44 76 96 05/30/21 04:39 75 97 05/30/21 04:34 75 96 05/30/21 04:29 77 96 05/30/21 04:24 75 96 05/30/21 04:19 73 96 05/30/21 04:14 83 91 05/30/21 04:12 76 89 L 05/30/21 04:09 76 93 05/30/21 04:06 77 141/78 H 94 05/30/21 04:05 16 05/30/21 04:04 78 96 05/30/21 03:59 74 93 05/30/21 03:54 77 96 05/30/21 03:49 75 95 05/30/21 03:44 77 96 05/30/21 03:39 75 96 05/30/21 03:34 77 96 05/30/21 03:29 77 96 PG Care Time/CCT Total # of Minutes Spent Total Time Spent with Patient: Total time spent is greater than 50% in coordination of care (as documented) at patient's floor/unit and/or counseling patient: Coding Level of Care Code None
[2021-05-30 15:28] LABS: BUN Creatinine Ratio 18.8 (10-20); Calcium 6.6 mg/dl (8.5-10.1); Est GFR (African American) 49.3 ml/min; Est GFR (Non-African American) 42.5 ml/min; Potassium 4.8 mmol/L (3.5-5.1)
[2021-05-30 16:13] LABS: Bilirubin Direct 0.1 mg/dl (0-0.2); Bilirubin,Total 0.4 mg/dl (0.2-1.0)
--- NOTE | 2021-05-30 19:01 | Nephrology Consultation ---
Date of Consultation May 30, 2021 Assessment & Plan (1) JOSÉ LUIS (acute kidney injury): (2) Anemia: (3) Acute hyponatremia: (4) Hypermagnesemia: Resolving features of preeclampsia. Creatinine has stabilized. Non- oliguric. Volume status acceptable. 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 US does not demonstrate obstruction. Urine microscopy did demonstrate active sediment (microscopic hematuria, pyuria, and protein). Low suspicion for acute GN. TMA not identified on labs. Peripheral smear did not demonstrate schistocytes. Normal platelet count. JOSÉ LUIS likely related to preeclampsia, acute anemia, with possible superimposed ATN. BP remains slightly elevated but improving. Denies symptoms. NaCl replacement to be stopped if serum sodium continues to improve. Increased TBW. Tolerating oral NaCl. Serum sodium improving acceptably without free water restriction. Laboratory findings consistent with increased ADH following delivery however. Denies symptoms from dysnatremia. Clinical presentation would be very atypical for acute adrenal insufficiency. I discussed the findings in detail with the patient and her . Management at this time includes solute replacement and PRBC transfusion support. Monitor strict I/O's and serial metabolic profile. Urine studies will also be monitored. History of Present Illness Reason for Consultation: JOSÉ LUIS, hyponatremia Requesting Physician: Adonay Webster Attending Physician: Irlanda Galindo MD, FACOG History of Present Illness Gavin Mistry was seen and evaluated earlier this evening with her (Matheus) at the bedside. Medical history and plan of care were reviewed with Dr. Ying and Dr. Webster today. Gavin was resting comfortably in bed at the time of my assessment with PRBC transfusion in process. She is understandably tired but overall feels well. Edema in her legs is improving. Appetite is good. She denies notable pain at this time. Bleeding has been reported as fairly minimal. No fevers. BP improving. BP this afternoon, 139/81. No abdominal complaints. No headaches. No rashes or skin lesions. Gavin is day 2 status post vaginal delivery of twins.Gavin presented for admission with preeclampsia. She was induced at 36 weeks. Her children are doing very well. Serum creatinine 1.0 mg/dL on 05/28. Creatinine 1.2-->1.6 mg/dL on 05/29. Creatinine stable at 1.6 mg/dL at this time. AST/ALT normal. Electrolytes notable for serum sodium of 130 mmol/L. Serum sodium yesterday was 125 mmol/L with Uosm of 320. On admission, serum sodium 134 mmol/L. Oral NaCl replacement has been provided. Gavin has not been maintained on a fluid restriction. NAGMA with HCO3 19. Random cortisol 4.48 and TSH 3.8. Serum albumin 3.0-->2.2 g/dL. Urine dipstick yesterday demonstrating trace protein with >30 WBC, >30 WBC, 1-5 hyaline casts. Gavin is non-oliguric. Love is draining clear yellow urine. Medical history is notable for a longstanding neutropenia which was worked up in the past. Allergies Allergy/AdvReac Type Severity Reaction Status Date / Time No Known Allergies Allergy Verified 05/23/21 16:04 Home Medications Medication Instructions Recorded Confirmed Type prenat.vits,brianne,[id number] 1 tab PO DAILY 05/23/21 05/28/21 History aspirin 81 mg chewable tablet 81 mg PO DAILY 05/28/21 05/28/21 History Patient History Medical History Dichorionic diamniotic twin Severe preeclampsia Surgical History S/P tonsillectomy [place] teeth extracted Family History Denies family history of Ovarian cancer Breast cancer Colorectal cancer Social History Smoking Status: Never smoker Second Hand Exposure: No; Hx Alcohol Use: No Hx Substance Use: No Preferred Language: Yoruba Communication Ability: Effective Visual Impairment: No Limitations Hearing Ability: Normal Hand Straightener Required: No Beliefs That Will Affect Care: None marital status: marital status details: Matheus ([phone] Current Living Situation: Spouse Current Living Situation Comment: lives with spouse, 1 dog. current occupational status: employed current occupation: teacher Feels Safe at Home: Yes Childhood Exposure to Second-Hand Smoke: No caffeine: No during the past year weight has: increased > 10 lbs Dental Care, Regularly: Yes Physical Activity Frequency: Daily Seatbelt Use: always Sunscreen Use: Yes Do you think of yourself as: straight/heterosexual Sexual Activity: has been sexually active within the last 12 months Gender Identity: Female Assistive Devices: None Review of Systems Review of Systems: All systems reviewed & are unremarkable except as noted in HPI & below Constitutional: + fatigue Physical Exam Constitutional: well developed; no acute distress Eyes: + anicteric sclerae; no scleral abnormality and no corneal abnormality ENMT: Mouth: no oral mucosal abnormality and oral mucous membranes not dry Neck: normal visual inspection and trachea midline Respiratory: normal respiratory effort Cardiovascular: Rate/Rhythm: regular rate Extremities: + edema (+2 pitting BL LE (SCDS)) Musculoskeletal: Extremities: no cyanosis and no clubbing Skin: normal turgor; no lesions Neurologic: Motor/Sensory: no tremor and no asterixis Psychiatric: Orientation: alert and oriented x 3 Genitourinary: Love draining clear yellow urine Results & Data ([facility]) Vital Signs (Past 12 Hours) Vital Signs Temp Pulse Resp BP Pulse Ox 05/30/21 18:56 85 133/78 05/30/21 18:54 85 98 05/30/21 18:49 81 98 05/30/21 18:44 82 97 05/30/21 18:39 81 97 05/30/21 18:34 71 97 05/30/21 18:29 77 98 05/30/21 18:24 76 98 05/30/21 18:20 81 155/85 H 05/30/21 18:19 81 97 05/30/21 18:18 37.7 C H 86 20 155/85 H 99 05/30/21 18:14 79 98 05/30/21 18:11 82 139/81 05/30/21 18:09 74 97 05/30/21 18:04 74 97 05/30/21 17:59 79 98 05/30/21 17:54 81 98 05/30/21 17:49 79 98 05/30/21 17:44 83 98 05/30/21 17:39 77 98 05/30/21 17:34 78 99 05/30/21 17:29 86 99 05/30/21 17:24 89 99 05/30/21 17:19 83 136/84 99 05/30/21 17:18 36.9 C 87 20 136/84 99 03/24/22 17:14 87 99 05/30/21 17:09 72 99 05/30/21 17:04 77 148/85 H 99 05/30/21 16:59 78 99 05/30/21 16:54 74 99 05/30/21 16:49 72 147/70 H 100 05/30/21 16:48 37 C 76 20 147/70 H 100 05/30/21 16:44 77 100 05/30/21 16:39 78 98 05/30/21 16:34 83 151/66 H 98 05/30/21 16:33 37.1 C 77 20 151/66 H 99 05/30/21 16:29 83 99 05/30/21 16:24 92 H 98 05/30/21 16:19 83 154/79 H 99 05/30/21 16:14 78 99 05/30/21 16:13 81 144/85 H 05/30/21 16:12 37.4 C 81 20 144/85 H 99 05/30/21 16:09 79 98 05/30/21 16:07 81 170/81 H 05/30/21 16:04 90 98 05/30/21 15:59 82 98 05/30/21 15:54 80 99 05/30/21 15:49 86 99 05/30/21 15:44 81 99 05/30/21 15:39 80 98 05/30/21 15:34 80 99 05/30/21 15:29 87 99 05/30/21 15:24 83 98 05/30/21 15:19 87 99 05/30/21 15:14 95 H 98 05/30/21 15:10 82 139/80 05/30/21 15:09 85 98 05/30/21 15:04 86 99 05/30/21 15:00 37.1 C 18 05/30/21 14:59 86 99 05/30/21 14:54 83 98 05/30/21 14:49 84 98 05/30/21 14:44 88 98 05/30/21 14:39 85 98 05/30/21 14:34 88 98 05/30/21 14:29 86 98 05/30/21 14:24 85 98 05/30/21 14:19 88 98 05/30/21 14:14 83 98 05/30/21 14:09 80 98 05/30/21 14:07 84 150/85 H 05/30/21 14:04 87 98 05/30/21 13:59 88 98 03 13:54 91 H 98 05/30/21 13:49 94 H 97 05/30/21 13:44 97 H 98 05/30/21 13:39 95 H 98 05/30/21 13:34 86 98 05/30/21 13:29 78 98 05/30/21 13:24 81 98 05/30/21 13:19 82 97 05/30/21 13:14 90 98 05/30/21 13:09 87 97 05/30/21 13:07 86 127/69 05/30/21 13:04 88 97 05/30/21 12:59 91 H 98 05/30/21 12:54 88 97 05/30/21 12:49 100 H 96 05/30/21 12:44 88 97 05/30/21 12:39 88 98 05/30/21 12:34 86 97 05/30/21 12:29 98 H 97 05/30/21 12:24 91 H 98 05/30/21 12:19 85 98 05/30/21 12:14 88 97 05/30/21 12:09 83 97 05/30/21 12:06 85 140/84 05/30/21 12:04 85 98 05/30/21 11:59 93 H 98 05/30/21 11:54 87 98 05/30/21 11:49 91 H 98 05/30/21 11:44 89 98 05/30/21 11:39 87 98 05/30/21 11:34 88 98 05/30/21 11:29 81 98 05/30/21 11:24 88 99 05/30/21 11:19 87 98 05/30/21 11:14 91 H 98 05/30/21 11:09 91 H 98 05/30/21 11:06 92 H 140/91 05/30/21 11:04 90 98 05/30/21 11:00 37.1 C 20 05/30/21 10:59 89 98 05/30/21 10:54 94 H 98 22 10:49 97 H 98 05/30/21 10:44 95 H 97 05/30/21 10:39 96 H 98 03/24/22 10:34 90 98 03/24/22 10:29 100 H 98 05/30/21 10:24 88 98 05/30/21 10:19 88 98 05/30/21 10:14 91 H 98 05/30/21 10:09 91 H 98 05/30/21 10:07 92 H 162/95 H 05/30/21 10:04 89 98 05/30/21 09:59 90 98 05/30/21 09:54 87 98 05/30/21 09:49 89 98 05/30/21 09:44 95 H 97 05/30/21 09:39 83 98 05/30/21 09:34 90 98 05/30/21 09:29 89 98 05/30/21 09:24 85 99 05/30/21 09:19 89 98 05/30/21 09:14 94 H 97 05/30/21 09:09 90 99 05/30/21 09:07 91 H 150/84 H 05/30/21 09:04 102 H 98 05/30/21 09:00 18 05/30/21 08:59 90 98 05/30/21 08:54 94 H 97 05/30/21 08:49 100 H 97 05/30/21 08:44 92 H 97 05/30/21 08:39 95 H 97 05/30/21 08:34 89 97 05/30/21 08:29 85 98 05/30/21 08:24 77 97 05/30/21 08:19 80 96 05/30/21 08:14 72 96 05/30/21 08:09 75 96 05/30/21 08:06 74 134/72 05/30/21 08:04 76 96 05/30/21 08:00 20 05/30/21 07:59 74 97 05/30/21 07:54 73 96 05/30/21 07:49 70 95 05/30/21 07:44 72 96 05/30/21 07:39 73 96 05/30/21 07:34 75 98 05/30/21 07:29 76 98 05/30/21 07:24 92 H 97 05/30/21 07:19 83 99 05/30/21 07:15 37.1 C 20 05/30/21 07:14 80 99 05/30/21 07:09 83 99 05/30/21 07:07 79 147/84 H 05/30/21 07:04 87 99 05/30/21 06:59 77 97 Laboratory Results Laboratory Results - last 24 hr 05/27/21 05/30/21 05/30/21 18:27 00:38 05:41 WBC RBC Hgb Hct MCV MCH MCHC RDW Std Deviation RDW Coeff of Emilio Plt Count MPV Absolute Nucleated RBC Nucleated RBC % (auto) Platelet Estimate Peripher Smr Path Cons Haptoglobin Sodium 125 L Cancelled Potassium 5.0 Cancelled Chloride 101 Cancelled Carbon Dioxide 18 L Cancelled Anion Gap 6 Cancelled BUN 25 H Cancelled Creatinine 1.65 H Cancelled Est Cr Clr Drug Dosing 57.2 Cancelled Est GFR ( Amer) 47.5 Cancelled Est GFR (Non-Af Amer) 40.9 Cancelled BUN/Creatinine Ratio 15.2 Cancelled Glucose 96 Cancelled Calcium 6.7 L Cancelled Magnesium Cancelled Total Bilirubin Cancelled Direct Bilirubin AST Cancelled ALT Cancelled Alkaline Phosphatase Cancelled Lactate Dehydrogenase Total Protein Cancelled Albumin Cancelled Globulin Cancelled Albumin/Globulin Ratio Cancelled Blood Type A Positive Antibody Screen NEGATIVE Crossmatch See Detail 05/30/21 05/30/21 05/30/21 05:41 05:41 07:08 WBC Cancelled 12.00 H RBC Cancelled 2.39 L Hgb Cancelled 7.5 L D Hct Cancelled 21.5 L MCV Cancelled 90.0 MCH Cancelled 31.4 MCHC Cancelled 34.9 RDW Std Deviation Cancelled 46.8 H RDW Coeff of Emilio Cancelled 14.2 Plt Count Cancelled 184 MPV Cancelled 12.2 H Absolute Nucleated RBC Cancelled 0.19 H Nucleated RBC % (auto) Cancelled 1.6 Platelet Estimate Cancelled Peripher Smr Path Cons Haptoglobin Sodium Cancelled Potassium Cancelled Chloride Cancelled Carbon Dioxide Cancelled Anion Gap Cancelled BUN Cancelled Creatinine Cancelled Est Cr Clr Drug Dosing Cancelled Est GFR ( Amer) Cancelled Est GFR (Non-Af Amer) Cancelled BUN/Creatinine Ratio Cancelled Glucose Cancelled Calcium Cancelled Magnesium Total Bilirubin Direct Bilirubin AST ALT Alkaline Phosphatase Lactate Dehydrogenase Total Protein Albumin Globulin Albumin/Globulin Ratio Blood Type Antibody Screen Crossmatch 05/30/21 05/30/21 05/30/21 07:08 14:19 14:19 WBC 11.84 H RBC 2.10 L Hgb 6.7 L* Hct 18.8 L* MCV 89.5 MCH 31.9 MCHC 35.6 RDW Std Deviation 46.9 H RDW Coeff of Emilio 14.4 Plt Count 198 MPV 12.1 H Absolute Nucleated RBC 0.22 H Nucleated RBC % (auto) 1.9 Platelet Estimate Peripher Smr Path Cons Haptoglobin Sodium 126 L Potassium 5.0 Chloride 103 Carbon Dioxide 18 L Anion Gap 5 BUN 27 H Creatinine 1.67 H Est Cr Clr Drug Dosing 56.5 Est GFR ( Amer) 46.8 Est GFR (Non-Af Amer) 40.4 BUN/Creatinine Ratio 16.2 Glucose 81 Calcium 6.6 L Magnesium 5.5 H* Total Bilirubin 0.5 Direct Bilirubin AST 34 ALT 33 Alkaline Phosphatase 181 H Lactate Dehydrogenase Total Protein 4.1 L Albumin 2.2 L Globulin 1.9 L Albumin/Globulin Ratio 1.2 Blood Type Antibody Screen Crossmatch 05/30/21 05/30/21 05/30/21 14:48 15:29 15:29 WBC RBC Hgb Hct MCV MCH MCHC RDW Std Deviation RDW Coeff of Emilio Plt Count MPV Absolute Nucleated RBC Nucleated RBC % (auto) Platelet Estimate Peripher Smr Path Cons Haptoglobin Sodium 130 L Potassium 4.8 Chloride 104 Carbon Dioxide 19 L Anion Gap 7 BUN 30 H Creatinine 1.60 H Est Cr Clr Drug Dosing 59.0 Est GFR ( Amer) 49.3 Est GFR (Non-Af Amer) 42.5 BUN/Creatinine Ratio 18.8 Glucose 113 H Calcium 6.6 L Magnesium Total Bilirubin 0.4 Direct Bilirubin 0.1 AST ALT Alkaline Phosphatase Lactate Dehydrogenase 289 H Total Protein Albumin Globulin Albumin/Globulin Ratio Blood Type Antibody Screen Crossmatch 05/30/21 05/30/21 15:29 15:29 WBC RBC Hgb Hct MCV MCH MCHC RDW Std Deviation RDW Coeff of Emilio Plt Count MPV Absolute Nucleated RBC Nucleated RBC % (auto) Platelet Estimate Peripher Smr Path Cons Haptoglobin Pending Sodium Potassium Chloride Carbon Dioxide Anion Gap BUN Creatinine Est Cr Clr Drug Dosing Est GFR ( Amer) Est GFR (Non-Af Amer) BUN/Creatinine Ratio Glucose Calcium Magnesium Total Bilirubin Direct Bilirubin AST ALT Alkaline Phosphatase Lactate Dehydrogenase Total Protein Albumin Globulin Albumin/Globulin Ratio Blood Type A Positive Antibody Screen NEGATIVE Crossmatch See Detail Diagnostic Findings ULTRASOUND KIDNEYS AND BLADDER FINDINGS: Kidneys: The kidneys are normal in size and echotexture. The right kidney measures 10.4 cm in length and the left kidney measures 11.4 cm in length. There is mild left-sided hydronephrosis. No hydronephrosis is seen on the right. No shadowing renal calculi are identified. There is no sonographic evidence of contour deforming renal mass lesion. No perinephric fluid is identified. Bladder: The bladder is decompressed around a Love catheter and could not be assessed. Upper abdomen: There is trace free fluid in the right upper quadrant. IMPRESSION: 1. The kidneys are normal in size. 2. There is mild left-sided hydronephrosis. 3. No hydronephrosis is seen on the right. 4. The bladder is decompressed around a Love catheter and cannot be assessed. 5. Trace free fluid is seen in the right upper quadrant. PG Care Time/CCT Total # of Minutes Spent Total Time Spent with Patient: Total time spent is greater than 50% in coordination of care (as documented) at patient's floor/unit and/or counseling patient: Coding Level of Care Code 38754 Inpt Consult Level 4 Diagnoses Anemia D64.9 Acute hyponatremia E87.1 JOSÉ LUIS (acute kidney injury) N17.9 Hypermagnesemia E83.41
[2021-05-30] MEDS ORDERED: bisacodyL 5 MG TABEC PO SCH (20:00)
--- NOTE | 2021-05-30 20:07 | CT Scan Report ---
CT abd pelvis wo con CLINICAL HISTORY: Lower abdominal pain. Status post vaginal delivery yesterday. COMPARISON STUDY: No previous studies for comparison. CT DOSE: 974.98 mGycm TECHNIQUE: Standard CT of the Abdomen and Pelvis was performed without IV contrast. The patient did not receive oral contrast. A dose lowering technique was utilized adhering to the principles of SUBHASH Bedolla FINDINGS: Lung base: There is minimal left basilar atelectasis. Lung bases are otherwise clear. Abdominal cavity: There is no evidence for abdominal mass, adenopathy or ascites. There is diastases of the anterior abdominal wall muscles with the bowel loops bulging anteriorly. There is a paucity of subcutaneous fat. Liver: The liver is homogeneous in attenuation on these limited noncontrast images.. Spleen: The spleen is homogeneous in attenuation on these limited noncontrast images. Pancreas: The pancreas is homogeneous in attenuation on these limited noncontrast images. Gall Bladder: The gallbladder is well distended with no evidence for cholelithiasis, wall thickening or pericholecystic edema.. Adrenal glands: The adrenal glands are normal in size and attenuation on these limited noncontrast im ages. Kidneys: The kidneys are homogeneous in attenuation on these limited noncontrast images. There is a 3 mm nonobstructing right renal calculus. There is no evidence for left renal calculus or hydronephros is bilaterally. There is no gross renal mass on these limited noncontrast images. Bowel: The stomach is distended with liquid and food stuff. The bowel loops are normally placed withi n the abdomen and pelvis without evidence for dilatation or obstruction. There is no evidence for mas s lesion. There are no inflammatory changes present. There is no evidence for free air. The appendix is not visualized. Bladder: Love catheter is present within the bladder. : The uterus is grossly enlarged related to the patient's state. However, there is incre ased attenuation present within the endometrial canal and especially the lower uterine segment repres enting the presence of a large hematoma. It measures at least 15 x 8.3 cm in size. There is also a sm all amount of free fluid seen within the cul-de-sac. Vasculature: There is no evidence for focal aneurysmal dilatation of the abdominal aorta. Osseous structures: There is no acute osseous pathology. IMPRESSION: 1. Enlarged, uterus with a large hematoma demonstrated within the endometrial canal and ex tending into the lower uterine segment. Follow-up ultrasound is recommended to exclude retained produ cts of conception. 2. Small amount of free fluid within the cul-de-sac. 3. Diastases of the anterior abdominal wall muscles with bulging of the bowel loops anteriorly. 4. 3 mm nonobstructing right renal calculus. 5. Additional nonacute findings are delineated above. ACT 112: Negative or not required by law. Electronically signed by: Timothy Santos M.D. 05/30/2021 8:05 PM
--- NOTE | 2021-05-30 20:57 | Obstetrical Progress Note ---
Date of Service May 30, 2021 Assessment & Plan Admission and Anticipated Discharge Date Admission Date: May 29, [address] scan showing retained clot within the endometrial cavity. Presented to narda askew's bedside to discuss findings and schedule we would need to expel the clot. 300 to 400 cc of clot were expressed. 800 mcg Cytotec placed per rectum. on exam prior to expression of the clot uterus was noted to be 1-2 cm below umbilicus and firm. After the clot was expressed the umbilicus was noted to be 3-4 cm below the umbilicus and firm. minimal bleeding noted after expression of clots Results & Data ([facility]) Vital Signs (Past 12 Hours) Vital Signs Temp Pulse Resp BP Pulse Ox 05/30/21 20:52 85 97 05/30/21 20:47 86 97 05/30/21 20:42 88 97 05/30/21 20:41 96 H 154/83 H 05/30/21 20:37 81 99 05/30/21 20:32 78 98 05/30/21 20:29 73 138/79 05/30/21 20:27 79 98 05/30/21 20:26 37.3 C 76 20 138/79 98 05/30/21 20:22 79 99 05/30/21 20:17 81 99 05/30/21 20:12 82 99 05/30/21 20:07 79 98 05/30/21 20:02 86 99 05/30/21 19:57 79 98 05/30/21 19:52 90 99 05/30/21 19:47 84 96 05/30/21 19:06 37.1 C 92 H 20 154/83 H 97 05/30/21 19:04 85 98 05/30/21 18:59 89 98 05/30/21 18:56 85 133/78 05/30/21 18:54 85 98 05/30/21 18:49 81 98 05/30/21 18:44 82 97 05/30/21 18:39 81 97 05/30/21 18:34 71 97 05/30/21 18:29 77 98 05/30/21 18:24 76 98 05/30/21 18:20 81 155/85 H 05/30/21 18:19 81 97 05/30/21 18:18 37.7 C H 86 20 155/85 H 99 05/30/21 18:14 79 98 05/30/21 18:11 82 139/81 05/30/21 18:09 74 97 05/30/21 18:04 74 97 05/30/21 17:59 79 98 05/30/21 17:54 81 98 05/30/21 17:49 79 98 05/30/21 17:44 83 98 05/30/21 17:39 77 98 05/30/21 17:34 78 99 05/30/21 17:29 86 99 05/30/21 17:24 89 99 05/30/21 17:19 83 136/84 99 05/30/21 17:18 36.9 C 87 20 136/84 99 05/30/21 17:14 87 99 05/30/21 17:09 72 99 05/30/21 17:04 77 148/85 H 99 05/30/21 16:59 78 99 05/30/21 16:54 74 99 05/30/21 16:49 72 147/70 H 100 05/30/21 16:48 37 C 76 20 147/70 H 100 05/30/21 16:44 77 100 05/30/21 16:39 78 98 05/30/21 16:34 83 151/66 H 98 05/30/21 16:33 37.1 C 77 20 151/66 H 99 05/30/21 16:29 83 99 05/30/21 16:24 92 H 98 05/30/21 16:19 83 154/79 H 99 05/30/21 16:14 78 99 05/30/21 16:13 81 144/85 H 05/30/21 16:12 37.4 C 81 20 144/85 H 99 05/30/21 16:09 79 98 05/30/21 16:07 81 170/81 H 05/30/21 16:04 90 98 05/30/21 15:59 82 98 05/30/21 15:54 80 99 05/30/21 15:49 86 99 05/30/21 15:44 81 99 05/30/21 15:39 80 98 05/30/21 15:34 80 99 05/30/21 15:29 87 99 05/30/21 15:24 83 98 05/30/21 15:19 87 99 05/30/21 15:14 95 H 98 05/30/21 15:10 82 139/80 05/30/21 15:09 85 98 05/30/21 15:04 86 99 05/30/21 15:00 37.1 C 18 05/30/21 14:59 86 99 05/30/21 14:54 83 98 05/30/21 14:49 84 98 05/30/21 14:44 88 98 05/30/21 14:39 85 98 05/30/21 14:34 88 98 05/30/21 14:29 86 98 05/30/21 14:24 85 98 05/30/21 14:19 88 98 05/30/21 14:14 83 98 05/30/21 14:09 80 98 05/30/21 14:07 84 150/85 H 05/30/21 14:04 87 98 05/30/21 13:59 88 98 05/30/21 13:54 91 H 98 05/30/21 13:49 94 H 97 05/30/21 13:44 97 H 98 05/30/21 13:39 95 H 98 05/30/21 13:34 86 98 05/30/21 13:29 78 98 05/30/21 13:24 81 98 05/30/21 13:19 82 97 05/30/21 13:14 90 98 05/30/21 13:09 87 97 05/30/21 13:07 86 127/69 05/30/21 13:04 88 97 05/30/21 12:59 91 H 98 05/30/21 12:54 88 97 05/30/21 12:49 100 H 96 05/30/21 12:44 88 97 05/30/21 12:39 88 98 05/30/21 12:34 86 97 05/30/21 12:29 98 H 97 05/30/21 12:24 91 H 98 05/30/21 12:19 85 98 05/30/21 12:14 88 97 05/30/21 12:09 83 97 05/30/21 12:06 85 140/84 05/30/21 12:04 85 98 05/30/21 11:59 93 H 98 05/30/21 11:54 87 98 05/30/21 11:49 91 H 98 05/30/21 11:44 89 98 05/30/21 11:39 87 98 03/24/22 11:34 88 98 05/30/21 11:29 81 98 05/30/21 11:24 88 99 05/30/21 11:19 87 98 05/30/21 11:14 91 H 98 05/30/21 11:09 91 H 98 05/30/21 11:06 92 H 140/91 05/30/21 11:04 90 98 05/30/21 11:00 37.1 C 20 05/30/21 10:59 89 98 05/30/21 10:54 94 H 98 05/30/21 10:49 97 H 98 05/30/21 10:44 95 H 97 05/30/21 10:39 96 H 98 05/30/21 10:34 90 98 05/30/21 10:29 100 H 98 05/30/21 10:24 88 98 05/30/21 10:19 88 98 05/30/21 10:14 91 H 98 05/30/21 10:09 91 H 98 05/30/21 10:07 92 H 162/95 H 05/30/21 10:04 89 98 05/30/21 09:59 90 98 05/30/21 09:54 87 98 05/30/21 09:49 89 98 05/30/21 09:44 95 H 97 05/30/21 09:39 83 98 05/30/21 09:34 90 98 05/30/21 09:29 89 98 05/30/21 09:24 85 99 05/30/21 09:19 89 98 05/30/21 09:14 94 H 97 05/30/21 09:09 90 99 05/30/21 09:07 91 H 150/84 H 05/30/21 09:04 102 H 98 05/30/21 09:00 18 05/30/21 08:59 90 98 PG Care Time/CCT Total # of Minutes Spent Total Time Spent with Patient: Total time spent is greater than 50% in coordination of care (as documented) at patient's floor/unit and/or counseling patient: Coding Level of Care Code None
[2021-05-30] MEDS ORDERED: miSOPROStoL 200 MCG TAB ONE (21:01)
[2021-05-30] MEDS ORDERED: miSOPROStoL 200 MCG TAB PR ONE (21:06)
[2021-05-30] MEDS: oxyCODONE/ACETAMINOPHEN 5mg/325mg TAB PO PRN (21:28)
[2021-05-31] MEDS: ACETAMINOPHEN 325 MG TAB PO PRN ×3 (00:04→20:22)
[2021-05-31] MEDS: oxyCODONE/ACETAMINOPHEN 5mg/325mg TAB PO PRN (03:53)
[2021-05-31 06:45] LABS: Hematocrit (blood only) 25.2 % (37-47); Hemoglobin 8.9 g/dL (12.0-16.0); Mean Corpuscular Hemoglobin 31.9 pg (25-34); Mean Corpuscular Hgb Conc 35.3 g/dL (32-36); Mean Corpuscular Volume 90.3 fL (80-100); Mean Platelet Volume 11.6 fL (7.4-10.4); Nucleated RBC # (auto) 0.17 K/uL (0-0); Nucleated RBC % (auto) 2.4 %; Platelet Count 145 K/uL (130-400); RDW Coefficient of Variation 14.5 % (11.5-14.5); RDW Standard Deviation 47.6 fL (36.4-46.3); Red Blood Count 2.79 M/uL (4.2-5.4); White Blood Count 6.93 K/uL (4.8-10.8)
[2021-05-31 07:07] LABS: Albumin Globulin Ratio 1.1 (0.9-2); Albumin Level 2.3 gm/dl (3.4-5.0); BUN Creatinine Ratio 23.8 (10-20); Bilirubin,Total 0.3 mg/dl (0.2-1.0); Calcium 7.1 mg/dl (8.5-10.1); Creatinine Clr Calc Pharmacy 89.9 ml/min; Est GFR (Non-African American) 70.7 ml/min; Total Protein 4.3 gm/dl (6.0-8.3)
--- NOTE | 2021-05-31 07:55 | Obstetrical Progress Note ---
Date of Service May 31, 2021 Assessment & Plan (1) Encounter for care and examination after delivery: PPD 2: stable, routine management * patient voiding wellwe will attempt ambulating later today. * pain well controlled on analgesia * tolerating regular diet * breast (pump) feeding * Observe on L&D floor today * Reassess d/c readiness tomorrow Miguel Alonso is a 30-year-old who is now PPD 2 following VAVD (twin A), and spontaneous vaginal delivery (twin B) at 36.2 weeks. Reports much better this morning. Minimal cramping pain well managed on analgesics. Voiding into Love catheter. Tolerating meals well but has yet to attempt ambulating. Lochia is improved this morning. Breast-feeding. Review of Systems Denies fever, chills, sweats Denies shortness of breath, difficulty breathing, chest pain, palpitations, chest pressure. Denies breast pain. Denies dysuria. Denies headache or changes in vision Physical Exam General: Alert, oriented. No acute distress. Cardiac: Regular rate and rhythm, no murmurs/rubs/gallops. Respiratory: Clear to auscultation bilaterally a/p, no wheezes/rales/rhonchi. No increased work of breathing. Symmetrical chest rise. No respiratory distress. Abdomen: Soft, nontender, nondistended. Bowel sounds present. Uterus: Uterine fundus firm, palpable above umbilicus. Lower Extremities: No lower extremity edema or swelling. No deep calf pain. Kaushal's negative bilaterally.. Results & Data ([facility]) Vital Signs (Past 12 Hours) Vital Signs Temp Pulse Resp BP Pulse Ox 05/31/21 07:37 72 147/79 H 05/31/21 04:00 37.5 C 18 05/31/21 03:52 92 H 140/83 97 05/31/21 03:47 72 95 05/31/21 03:42 70 96 05/31/21 03:37 72 96 05/31/21 03:32 81 97 05/31/21 03:27 77 97 05/31/21 03:22 82 97 05/31/21 03:17 78 94 05/31/21 03:13 83 94 05/31/21 03:12 85 98 05/31/21 03:07 84 97 05/31/21 03:02 77 98 05/31/21 02:57 75 98 05/31/21 02:52 79 98 05/31/21 02:47 81 97 05/31/21 02:42 75 97 05/31/21 02:37 80 98 05/31/21 02:32 78 98 05/31/21 02:27 81 98 05/31/21 02:22 83 96 05/31/21 02:17 74 97 05/31/21 02:12 80 96 05/31/21 02:07 84 97 05/31/21 02:02 87 96 05/31/21 01:57 83 96 05/31/21 01:52 79 96 05/31/21 01:47 71 96 05/31/21 01:42 70 96 05/31/21 01:37 70 98 05/31/21 01:32 71 96 05/31/21 01:27 70 96 05/31/21 01:22 71 97 05/31/21 01:17 73 97 05/31/21 01:12 81 98 05/31/21 01:07 94 H 98 05/31/21 01:02 80 98 05/31/21 01:00 37.3 C 18 05/31/21 00:57 86 98 05/31/21 00:52 82 99 05/31/21 00:47 83 98 05/31/21 00:42 84 98 05/31/21 00:37 79 98 05/31/21 00:32 78 98 05/31/21 00:27 88 144/89 H 99 05/31/21 00:22 83 99 05/31/21 00:17 80 99 05/31/21 00:12 87 98 05/31/21 00:07 86 98 05/31/21 00:02 86 98 05/30/21 23:57 87 98 05/30/21 23:55 38.2 C H 92 H 16 128/78 98 05/30/21 23:52 91 H 98 05/30/21 23:47 84 97 05/30/21 23:42 99 H 96 05/30/21 23:37 85 96 05/30/21 23:32 81 96 05/30/21 23:27 94 H 156/79 H 96 05/30/21 23:26 38.2 C H 85 16 156/79 H 98 05/30/21 23:22 95 H 96 05/30/21 23:17 84 96 05/30/21 23:12 91 H 94 05/30/21 23:10 84 94 05/30/21 23:07 88 96 05/30/21 23:02 88 96 05/30/21 22:57 91 H 96 05/30/21 22:52 85 95 05/30/21 22:47 84 95 05/30/21 22:42 87 95 05/30/21 22:37 82 96 05/30/21 22:32 76 96 05/30/21 22:27 78 151/84 H 96 05/30/21 22:26 37.8 C H 78 20 151/84 H 96 05/30/21 22:22 76 97 05/30/21 22:17 72 97 05/30/21 22:12 73 98 05/30/21 22:07 74 97 05/30/21 22:02 72 97 05/30/21 21:57 74 97 05/30/21 21:52 74 98 05/30/21 21:47 70 98 05/30/21 21:42 74 98 05/30/21 21:37 69 99 05/30/21 21:32 73 100 05/30/21 21:27 82 99 05/30/21 21:26 37.4 C 84 20 155/79 H 99 05/30/21 21:22 78 99 05/30/21 21:17 94 H 99 05/30/21 21:12 86 98 05/30/21 21:07 76 99 05/30/21 21:02 88 100 05/30/21 20:57 85 145/84 H 98 05/30/21 20:56 37.3 C 80 20 145/84 H 99 05/30/21 20:52 85 97 05/30/21 20:47 86 97 05/30/21 20:42 88 97 05/30/21 20:41 37.1 C 77 20 154/83 H 99 05/30/21 20:37 81 99 05/30/21 20:32 78 98 05/30/21 20:29 73 138/79 05/30/21 20:27 79 98 05/30/21 20:26 37.3 C 76 20 138/79 98 05/30/21 20:22 79 99 03/24/22 20:17 81 99 05/30/21 20:12 82 99 05/30/21 20:07 79 98 05/30/21 20:02 86 99 05/30/21 19:57 79 98 05/30/21 19:52 90 99 Resident Activity Tracking Resident Involvement: Resident Care Provided Care Provided: OB Delivery
[2021-05-31] MEDS: PRENATAL VITAMIN 1 TAB PO SCH (10:13)
[2021-05-31] MEDS: DOCUSATE SODIUM 100 MG CAP PO SCH ×2 (10:13→20:22)
--- NOTE | 2021-05-31 10:41 | Nephrology Progress Note ---
Date of Service May 31, 2021 Assessment & Plan (1) JOSÉ LUIS (acute kidney injury): Plan: Creatinine improved to 1 mg/dL. Non-oliguric. UA/microscopy will be repeated. Electrolytes acceptable. Resolving JOSÉ LUIS. If urine studies are reassuring, nephrology will sign-off. Please call with any additional questions or concerns. (2) Anemia: Plan: Improvement noted with PRBC transfusion support. Thankfully, findings were not consistent with TMA. (3) Acute hyponatremia: Plan: Improving. NaCl replacement held. Suspect this is resolving from ADH post delivery and increased TBW. If concerns noted on repeat monitoring, please call to arrange additional follow up. (4) Hypermagnesemia: Admission and Anticipated Discharge Date Admission Date: May 29, 2021 Subjective No acute events overnight. Feeling stronger after PRBC transfusion. Edema improving. No fevers or chills. Overall, Gavin feels well this morning. Review of Systems Review of Systems: All systems reviewed & are unremarkable except as noted in HPI & below Physical Exam Constitutional: well developed; no acute distress Eyes: + anicteric sclerae; no scleral abnormality and no corneal abnormality ENMT: Mouth: no oral mucosal abnormality and oral mucous membranes not dry Neck: normal visual inspection and trachea midline Respiratory: normal respiratory effort Cardiovascular: Rate/Rhythm: regular rate Extremities: + edema (+2 pitting BL LE (SCDS)) Musculoskeletal: Extremities: no cyanosis and no clubbing Skin: normal turgor; no lesions Neurologic: Motor/Sensory: no tremor and no asterixis Psychiatric: Orientation: alert and oriented x 3 Results & Data ([facility]) Vital Signs (Past 12 Hours) Vital Signs Temp Pulse Resp BP Pulse Ox 05/31/21 07:37 72 147/79 H 05/31/21 07:30 36.7 C 18 05/31/21 04:00 37.5 C 18 05/31/21 03:52 92 H 140/83 97 05/31/21 03:47 72 95 05/31/21 03:42 70 96 05/31/21 03:37 72 96 05/31/21 03:32 81 97 05/31/21 03:27 77 97 05/31/21 03:22 82 97 05/31/21 03:17 78 94 05/31/21 03:13 83 94 05/31/21 03:12 85 98 05/31/21 03:07 84 97 05/31/21 03:02 77 98 05/31/21 02:57 75 98 05/31/21 02:52 79 98 05/31/21 02:47 81 97 05/31/21 02:42 75 97 05/31/21 02:37 80 98 05/31/21 02:32 78 98 05/31/21 02:27 81 98 05/31/21 02:22 83 96 05/31/21 02:17 74 97 05/31/21 02:12 80 96 05/31/21 02:07 84 97 05/31/21 02:02 87 96 05/31/21 01:57 83 96 05/31/21 01:52 79 96 05/31/21 01:47 71 96 05/31/21 01:42 70 96 05/31/21 01:37 70 98 05/31/21 01:32 71 96 05/31/21 01:27 70 96 05/31/21 01:22 71 97 05/31/21 01:17 73 97 05/31/21 01:12 81 98 05/31/21 01:07 94 H 98 05/31/21 01:02 80 98 05/31/21 01:00 37.3 C 18 05/31/21 00:57 86 98 05/31/21 00:52 82 99 05/31/21 00:47 83 98 05/31/21 00:42 84 98 05/31/21 00:37 79 98 05/31/21 00:32 78 98 05/31/21 00:27 88 144/89 H 99 05/31/21 00:22 83 99 05/31/21 00:17 80 99 05/31/21 00:12 87 98 05/31/21 00:07 86 98 05/31/21 00:02 86 98 05/30/21 23:57 87 98 05/30/21 23:55 38.2 C H 92 H 16 128/78 98 05/30/21 23:52 91 H 98 05/30/21 23:47 84 97 05/30/21 23:42 99 H 96 05/30/21 23:37 85 96 05/30/21 23:32 81 96 05/30/21 23:27 94 H 156/79 H 96 05/30/21 23:26 38.2 C H 85 16 156/79 H 98 05/30/21 23:22 95 H 96 05/30/21 23:17 84 96 05/30/21 23:12 91 H 94 05/30/21 23:10 84 94 05/30/21 23:07 88 96 05/30/21 23:02 88 96 05/30/21 22:57 91 H 96 05/30/21 22:52 85 95 05/30/21 22:47 84 95 05/30/21 22:42 87 95 05/30/21 22:37 82 96 Laboratory Results Laboratory Results - last 24 hr 05/27/21 05/30/21 05/30/21 18:27 14:19 14:19 WBC 11.84 H RBC 2.10 L Hgb 6.7 L* Hct 18.8 L* MCV 89.5 MCH 31.9 MCHC 35.6 RDW Std Deviation 46.9 H RDW Coeff of Emilio 14.4 Plt Count 198 MPV 12.1 H Absolute Nucleated RBC 0.22 H Nucleated RBC % (auto) 1.9 Peripher Smr Path Cons Haptoglobin Sodium Potassium Chloride Carbon Dioxide Anion Gap BUN Creatinine Est Cr Clr Drug Dosing Est GFR ( Amer) Est GFR (Non-Af Amer) BUN/Creatinine Ratio Glucose Calcium Total Bilirubin Direct Bilirubin AST ALT Alkaline Phosphatase Lactate Dehydrogenase Total Protein Albumin Globulin Albumin/Globulin Ratio Blood Type A Positive Antibody Screen NEGATIVE Crossmatch See Detail 05/30/21 05/30/21 05/30/21 14:48 15:29 15:29 WBC RBC Hgb Hct MCV MCH MCHC RDW Std Deviation RDW Coeff of Emilio Plt Count MPV Absolute Nucleated RBC Nucleated RBC % (auto) Peripher Smr Path Cons Haptoglobin Sodium 130 L Potassium 4.8 Chloride 104 Carbon Dioxide 19 L Anion Gap 7 BUN 30 H Creatinine 1.60 H Est Cr Clr Drug Dosing 59.0 Est GFR ( Amer) 49.3 Est GFR (Non-Af Amer) 42.5 BUN/Creatinine Ratio 18.8 Glucose 113 H Calcium 6.6 L Total Bilirubin 0.4 Direct Bilirubin 0.1 AST ALT Alkaline Phosphatase Lactate Dehydrogenase 289 H Total Protein Albumin Globulin Albumin/Globulin Ratio Blood Type Antibody Screen Crossmatch 05/30/21 05/30/21 05/31/21 15:29 15:29 06:27 WBC RBC Hgb Hct MCV MCH MCHC RDW Std Deviation RDW Coeff of Emilio Plt Count MPV Absolute Nucleated RBC Nucleated RBC % (auto) Peripher Smr Path Cons Haptoglobin Pending Sodium 135 L Potassium 5.0 Chloride 110 H Carbon Dioxide 21 Anion Gap 4 BUN 25 H Creatinine 1.05 D Est Cr Clr Drug Dosing 89.9 Est GFR ( Amer) 82.0 Est GFR (Non-Af Amer) 70.7 BUN/Creatinine Ratio 23.8 H Glucose 94 Calcium 7.1 L Total Bilirubin 0.3 Direct Bilirubin AST 29 ALT 28 Alkaline Phosphatase 160 H Lactate Dehydrogenase Total Protein 4.3 L Albumin 2.3 L Globulin 2.0 L Albumin/Globulin Ratio 1.1 Blood Type A Positive Antibody Screen NEGATIVE Crossmatch See Detail 05/31/21 06:27 WBC 6.93 RBC 2.79 L Hgb 8.9 L Hct 25.2 L MCV 90.3 MCH 31.9 MCHC 35.3 RDW Std Deviation 47.6 H RDW Coeff of Emilio 14.5 Plt Count 145 MPV 11.6 H Absolute Nucleated RBC 0.17 H Nucleated RBC % (auto) 2.[address] Cons Haptoglobin Sodium Potassium Chloride Carbon Dioxide Anion Gap BUN Creatinine Est Cr Clr Drug Dosing Est GFR ( Amer) Est GFR (Non-Af Amer) BUN/Creatinine Ratio Glucose Calcium Total Bilirubin Direct Bilirubin AST ALT Alkaline Phosphatase Lactate Dehydrogenase Total Protein Albumin Globulin Albumin/Globulin Ratio Blood Type Antibody Screen Crossmatch PG Care Time/CCT Total # of Minutes Spent Total Time Spent with Patient: Total time spent is greater than 50% in coordination of care (as documented) at patient's floor/unit and/or counseling patient: Coding Level of Care Code 24828 Subseq Hosp Care Lvl 3 Diagnoses JOSÉ LUIS (acute kidney injury) N17.9 Anemia D64.9 Acute hyponatremia E87.1 Hypermagnesemia E83.41
--- NOTE | 2021-05-31 15:23 | Communication Note ---
Date of Service: May 31, 2021 Doing well 30-year-old female who presented with 36 weeks gestation of concern for preeclampsia. s/p delivery by induction 05/29 - diamniotic dichorionic twin gestation delivery @ 36 weeks with induction pre delivery did have elevated BP, Acute Kidney Injury, Hyponatremia JOSÉ LUIS (acute kidney injury): Initial urine electrolytes FeNA suggests pre renal distress of kidney, Na is correcting urine sediment is no active to suggest nephritis, will have nephrology weigh in renal no medical renal disease suggested no obstructive cause Return to baseline after transfusion and control blood pressure Anemia:post has anemia, laboratories negative for suggestion of hemolysis therefore acute blood loss with delivery appropriate rise after transfusion of 2 units packed red blood cells Acute hyponatremia: Resolved nephrology is following received hypertonic saline in 1-2 doses of oral sodium chloride since stopped Patient is medically stable at this time electrolytes are favorable, renal function has returned to near normal, hyponatremia resolved, and hemoglobin seems stable with CT scan confirming no outside source of blood loss. Medicine will sign off at this time final disposition to discharge will be determined by obstetrics
[2021-06-01 07:47] LABS: Albumin Globulin Ratio 1.3 (0.9-2); Albumin Level 2.6 gm/dl (3.4-5.0); BUN Creatinine Ratio 22.4 (10-20); Bilirubin,Total 0.4 mg/dl (0.2-1.0); Calcium 7.6 mg/dl (8.5-10.1); Creatinine Clr Calc Pharmacy 124.2 ml/min; Est GFR (African American) 121.1 ml/min; Est GFR (Non-African American) 104.5 ml/min; Potassium 4.6 mmol/L (3.5-5.1); Total Protein 4.6 gm/dl (6.0-8.3)
--- NOTE | 2021-06-01 07:59 | Obstetrical Progress Note ---
Date of Service <Emmy Cook MD - Last Filed: 06/01/21 07:59> June 01, 2021 Assessment & Plan <Emmy Cook MD - Last Filed: 06/01/21 07:59> (1) Encounter for care and examination after delivery: PPD 3: stable, routine management * patient voiding well and ambulating w/o difficulty. * pain well controlled on analgesia * tolerating regular diet * breast (pump) feeding * Anticipate d/c today pending hospitalist ok * 72-hour BP check in clinic on Thursday * 6-week outpatient OB follow-up barring additional complications. <Erica Soni MD, FACOG - Last Filed: 06/01/21 08:17> (1) Encounter for care and examination after delivery: Subjective <Emmy Cook MD - Last Filed: 06/01/21 07:59> Gavin is a 30-year-old who is now PPD 3 following VAVD (twin A), and spontaneous vaginal delivery (twin B) at 36.2 weeks. Reports feeling much better this morning. Minimal cramping pain well managed on analgesics. Voiding well now that Love catheter has been removed. Tolerating meals well and is ambulating on her own with difficulty or assistance. Lochia continues to improve this morning. Breast-feeding. Physical Exam <Emmy Cook MD - Last Filed: 06/01/21 07:59> General: Alert, oriented. No acute distress. Cardiac: Regular rate and rhythm, no murmurs/rubs/gallops. Respiratory: Clear to auscultation bilaterally a/p, no wheezes/rales/rhonchi. No increased work of breathing. Symmetrical chest rise. No respiratory distress. Abdomen: Soft, nontender, nondistended. Bowel sounds present. Uterus: Uterine fundus firm, palpable 1 cm below the umbilicus. Lower Extremities: No lower extremity edema or swelling. No deep calf pain. Kaushal's negative bilaterally.. Results & Data ([facility]) <Emmy Cook MD - Last Filed: 06/01/21 07:59> Vital Signs (Past 12 Hours) Vital Signs Temp Pulse Resp BP Pulse Ox 06/01/21 00:15 36.8 C 72 16 135/77 98 05/31/21 20:00 37.2 C 77 18 135/82 <Erica Soni MD, FACOG - Last Filed: 06/01/21 08:17> Co-Signing Physician Notes Resident Physician Supervision Note: I interviewed and examined the patient. Discussed with Dr. Cook and agree with findings and plan as documented in the note. Any exceptions or clarifications are listed here: Doing very well. Was able to void without difficulty. Labial swelling has practically resolved. BPs are occasionallly mildly elevated but not in a range requiring treatment. She has no s/s of PET. +1edema. fundus firm at u. Minister now normal as well as electrolytes. Will d/c today. Room in if babies are not d/c. Instructions reviewed. s/s of pet reviewed. rtc Tues for blood pressure check. Documented By: Erica Soni MD, FACOG Resident Activity Tracking <Emmy Cook MD - Last Filed: 06/01/21 07:59> Resident Involvement: Resident Care Provided Care Provided: OB Delivery
[2021-06-01] MEDS: PRENATAL VITAMIN 1 TAB PO SCH (08:57)
[2021-06-01] MEDS: DOCUSATE SODIUM 100 MG CAP PO SCH (08:57)
--- NOTE | 2021-06-04 20:19 | Discharge Summary (DS) ---
DATE OF ADMISSION: 05/28/2021 DATE OF DISCHARGE: 06/01/2021 PRINCIPAL DIAGNOSIS: Preeclampsia with severe features, delivery of dichorionic-diamniotic twins. Twin A by vacuum and twin B spontaneous vaginal delivery. Acute kidney injury, hyponatremia. BRIEF HISTORY: The patient is a 30-year-old 1, P0 white female with EDC of 06/25/2021, with known diamniotic dichorionic twins. She had come to labor and delivery at 35 and 6/7 weeks for her routine nonstress test because of twin gestation. She was noted to have elevated blood pressures accompanied by significant lower extremity edema. Her PIH labs met the criteria for - induced hypertension with severe features. She was ultimately induced and went on to deliver vaginally twin A with vacuum assistance followed by twin B with a spontaneous vaginal delivery. , she had a complicated course. Labs done right after delivery showed an elevated magnesium and her magnesium sulfate had been stopped. Up to that point, her blood pressure remained stable with occasional elevations and her protein-creatinine ratio was markedly elevated initially. Liver enzymes were also beginning to trend upward prior to delivery and then normalized by discharge. Platelet count did appear to stay stable. Following delivery, she had decreased urine output and was noted to have hyponatremia. She did receive a fluid bolus during the course of her labor because of low and concentrated urine output just shortly before delivery. Hospitalist consultation was obtained and they recommended normal saline IV and salt tablets as well as Lasix, which was successful in increasing urine output dramatically and resolving the hyponatremia. During this time period, she continued to feel well and had no complaints. A CT scan was done of the abdomen to check for any evidence of acute kidney injury and she was noted to have approximately 400 mL of clot in her lower uterine segment. During the immediate time period, her bleeding had been minimal and the uterus was firm & below the umbilicus. With fundal massage, a large amount of this clot was expressed and her bleeding continued to be small. Hemoglobin was also noted to be 6.7, which had dropped from initial hemoglobin of 12.6. She was transfused 2 units of packed cells because of the low hemoglobin. Again, her bleeding remained minimal and during this time period, her creatinine normalized as did her sodium with the appropriate IV fluids and Lasix therapy. Her creatinine was elevated at 1.23 on admission and increased to a high of 1.67 on the first day. . After that, the creatinine continued to return to normal and was in the normal range by her third day.. She was then discharged in stable condition on the fourth hospital day after delivery. At that point, sodium and potassium were all normalized. Creatinine was 0.76, AST and ALT were also within normal limits. Overall, the patient had been feeling much better from the standpoint of her lower extremity edema prior to discharge. She will follow up in the office for blood pressure check in 1 week and will call for any symptoms of PIH. Job ID: [id number] JANEY
== END 2021-06-01 13:45 | disposition home or self-care (01) | DRG 805 ==
LOC: OPB 17:19 → 4S1 17:19 → 4E2 05-31 12:41

== ENCOUNTER 2023-10-27 11:51 | Inpatient (IN) ==
[2023-10-27] MEDS ORDERED: LIDOCAINE 1% LOCAL 20 ML VIAL INFIL PRN (12:04)
[2023-10-27] MEDS ORDERED: OXYTOCIN 30 UNITS/NSS 30 UNITS/500 ML BAG IV PRN ×2 (12:04→22:52)
--- NOTE | 2023-10-27 12:23 | History & Physical Report ---
Date of Service October 27, 2023 Assessment & Plan (1) Gestational diabetes mellitus (GDM) affecting , antepartum: (2) History of delivery, currently : (3) History of pre-eclampsia: (4) Encounter for supervision of normal in multigravida: Plan Admit; Preeclampsia labs Discussed IOL w balloon/pit, pt agreeable. VSS. GBS neg, Rh+, ri. FHT category 1. Liver enzymes elevated but stable, Hgb and Plt wnl. Admission and Anticipated Discharge Date Admission Date: October 27, 2023 History of Present Illness Chief Complaint: itching Primary Care Provider: Ilya Craig Patient is a 32 y/o female , currently at 39w 1d with ROULA 11/02/2023 as determined by LMP, who is here for labor induction. Her first was a multiple , complicated by pre-eclampsia and gestational cholestasis, and resulted in induction of labor using pitocin. This has been complicated by GDM, which is diet-controlled. She checks her blood sugar at home and reports her numbers have been good. For the last few days (< 1 week), she has had intense itching in her palms and soles, which she says is similar to her previous but much milder. She denies MARTI, visual disturbance, SOB, chest pain, leg swelling, or n/v exceeding baseline - related symptoms. She has had regular appointments with OB. She is having mild, irregular contractions; does feel movement; no fluid l oss; no bloody show External FHT and external uterine monitors used; category 1 tracing; moderate FHR variability Blood type: A+ Antibody screen: Neg Hgb: 13.8 (today) Hct: 39.7 (today) WBC: 2.89 (today) Plt: 145 (today) Glucose: 101 AST: 71 ALT: 139 ALP: 169 LDH: 195 Uric acid: 5.5 Urine prot/Cr: collected Rubella: Immune GBS: Negative VDRL/RPR: Non-reactive Gonorrhea: Not detected Chalmydia: Not detected HIV: Non-reactive HbSAg: Non-reactive US 10/14: EFW = 77%, AC = 84% Allergies Allergy/AdvReac Type Severity Reaction Status Date / Time No Known Allergies Allergy Verified 10/26/23 16:09 Home Medications Medication Instructions Recorded Confirmed Type prenat.vits,brianne,[id number] 1 tab PO DAILY 05/23/21 10/26/23 History acetone (urine) test (Ketone Urine #50 ea 09/15/23 10/26/23 Rx Test strips) blood sugar diagnostic (OneTouch #150 ea 09/15/23 10/26/23 Rx Verio test strips) blood-glucose meter (OneTouch #1 ea 09/15/23 10/26/23 Rx Verio Reflect Meter) lancets 33 gauge (OneTouch Delica #150 ea 09/15/23 10/26/23 Rx Plus Lancet) Past Med/Surg History Problem List (Updated 10/27/23 @ 12:08 by Lenore Baptiste, RN) Gestational diabetes mellitus (GDM) affecting , antepartum History of delivery, currently History of pre-eclampsia Encounter for supervision of normal in multigravida Encounter for care and examination after delivery HPV in female Encounter for anatomic survey Medical History (Updated 10/27/23 @ 12:08 by Lenore Baptiste, RN) Neutropenia History of chicken pox Severe pre-eclampsia with complication Cholestasis during Anemia Acute hyponatremia JOSÉ LUIS (acute kidney injury) Hypermagnesemia Encounter for pre-operative examination Severe preeclampsia Preeclampsia Pruritus of Dichorionic diamniotic twin Surgical History (Updated 03/20/23 @ 09:05 by Kenyetta Steen) History of cryosurgery Status post colposcopy S/P tonsillectomy [place] teeth extracted Family History Denies family history of Ovarian cancer Breast cancer Colorectal cancer Social History (Updated 03/20/23 @ 08:53 by Kenyetta Steen) Smoking Status: Never smoker Second Hand Exposure: No; Do You Dip or Chew Tobacco: No; Hx Alcohol Use: No Hx Substance Use: No Preferred Language: Peruvian Communication Ability: Effective Visual Impairment: No Limitations Hearing Ability: Normal Supervisor Audit Clerks Required: No Beliefs That Will Affect Care: None marital status: marital status details: Matheus Mistry [phone] Current Living Situation: Family Current Living Situation Comment: lives with spouse, 2 children, 1 dog. current occupational status: employed current occupation: teacher-[employer] Other Information That Helps Us Care for You: No Feels Safe at Home: Yes Safety Concerns: Feels Safe At This Time Childhood Exposure to Second-Hand Smoke: No Diet: regular caffeine: No during the past year weight has: increased > 10 lbs Dental Care, Regularly: Yes Physical Activity Frequency: Daily Seatbelt Use: always Sunscreen Use: Yes Do you think of yourself as: straight/heterosexual Sexual Activity: has been sexually active within the last 12 months Gender Identity: Female Assistive Devices: None Review of Systems Review of Systems: Per HPI. Physical Exam Physical Exam: General: Alert and oriented. No acute distress CV: Regular rate and rhythm. No murmurs. Respiratory: CTA bilaterally. No rhonchi, wheezes, or crackles. No increased work of breathing. Abdomen: Gravid: Soft, nontender Pelvic: Dilated 1.5 cm; Effacement 70%; Station -[address] Fields Lower extremities: No LE edema. No deep calf pain. Kaushal's negative bilaterally. Results & Data Results & Data Vital Signs (Past 12 Hours) Vital Signs Temp Pulse Resp BP 10/27/23 11:58 36.7 C 18 10/27/23 11:56 93 H 109/69 Supervising Physician Co-Signing Physician Notes Resident Physician Supervision Note: I interviewed and examined the patient. Discussed with Dr. Pennington and agree with findings and plan as documented in the note. Any exceptions or clarifications are listed here: 32-year-old -1-0-2 (history of twins), at 39 weeks 1 day, presented to labor and delivery after lab workup for itching of the palms and soles revealed elevated liver enzymes. complicated by history of delivery of twins at 36 weeks due to preeclampsia, cholestasis in prior , longstanding history of neutropenia, gestational diabetes diet-controlled. Her liver enzymes showed AST 74 and ALT 142 yesterday. These were repeated upon arrival to labor and delivery, with slight improvement-AST 71, ALT 139. Additional labs for preeclampsia were performed, platelets 145, creatinine 0.61, uric acid 5.5, total bilirubin 0.9, lactate dehydrogenase 195. Protein creatinine ratio 0.3. Bile acids were drawn in the office yesterday, these are still pending. After arrival to labor and delivery, blood pressures have been normal. Other than the itching symptoms, patient reports that she feels well. Positive movement, no vaginal bleeding, leaking of fluid. Irregular contractions. Category 1 tracing, irregular contractions. I discussed the results with patient, and would advise that we move towards delivery given that she is 39 weeks with elevated liver enzymes. She is agreeable with this plan. Cervix examination 1 to 2 cm/70%/-2. Love balloon placed and filled with 35 cc sterile water. Pitocin will start as soon as L&D staffing levels allow. She plans for epidural. Given her pruritus symptoms, elevated liver enzymes that have not continued to climb, normal blood pressure, and lack of other symptoms, at this time I suspect this is cholestasis of rather than preeclampsia. However, we will continue to monitor and reevaluate during her labor progress. Documented By: Amanda Fields, Resident Activity Tracking Resident Involvement: Resident Care Provided Care Provided: OB Delivery
[2023-10-27 12:51] LABS: Albumin Globulin Ratio 1.3 (0.9-2); Albumin Level 3.6 gm/dl (3.4-5.0); BUN Creatinine Ratio 14.8 (10-20); Bilirubin,Total 0.9 mg/dl (0.2-1.0); Calcium 8.6 mg/dl (8.6-10.3); Creatinine Clr Calc Pharmacy 139.7 ml/min; Est GFR (African American) 138.1 ml/min; Est GFR (Non-African American) 119.1 ml/min; Globulin 2.7 gm/dl (2.5-4.0); Potassium 4.2 mmol/L (3.5-5.1); Total Protein 6.3 gm/dl (6.0-8.3); Uric Acid 5.5 mg/dl (2.6-7.2)
[2023-10-27 12:54] LABS: Hematocrit (blood only) 39.7 % (37.0-47.0); Hemoglobin 13.8 g/dl (12.0-16.0); Mean Corpuscular Hemoglobin 30.1 pg (25.0-34.0); Mean Corpuscular Hgb Conc 34.8 g/dL (32.0-36.0); Mean Corpuscular Volume 86.5 fL (80.0-100.0); Mean Platelet Volume 11.1 fL (9.4-12.4); Platelet Count 145 K/uL (130-400); RDW Coefficient of Variation 12.9 % (11.5-14.5); RDW Standard Deviation 40.2 fL (36.4-46.3); Red Blood Count 4.59 M/uL (4.20-5.40); White Blood Count 2.89 K/ul (4.8-10.8)
[2023-10-27 13:36] LABS: Creatinine Urine Random 54.1 mg/dl; Protein Creatinine Ratio Urine 0.3 (0-0.2); Total Protein Urine Random 14.9 mg/dl (0-11.9)
[2023-10-27] MEDS: LACTATED RINGER'S 1,000 ML IV PRN (15:35)
[2023-10-27] MEDS: OXYTOCIN 30 UNITS/NSS 30 UNITS/500 ML BAG IV PRN (15:37)
[2023-10-27] MEDS ORDERED: SODIUM CHLORIDE 0.9% PF INJ 10 ML VIAL EPI PRN (16:23)
[2023-10-27] MEDS ORDERED: NALOXONE HCL 1 MG in SODIUM CHLORIDE 0.9% 1,000 ML IV PRN (16:23)
[2023-10-27] MEDS ORDERED: NALBUPHINE HCL 5 MG in SYRINGE 0 ML IV PRN (16:23)
[2023-10-27] MEDS ORDERED: LIDOCAINE 2% MPF LOCAL 5 ML VIAL EPI PRN (16:23)
[2023-10-27] MEDS ORDERED: NALOXONE HCL 0.4 MG/1 ML VIAL/CARP IV PRN (16:23)
[2023-10-27] MEDS ORDERED: fentaNYL citrate PF 100 MCG/2 ML VIAL EPI PRN (16:23)
[2023-10-27] MEDS ORDERED: diphenhydrAMINE 50 MG/ML VIAL IV PRN (16:23)
[2023-10-27] MEDS ORDERED: SODIUM CHLORIDE 0.9% PF INJ 10 ML VIAL EPI STA (16:23)
[2023-10-27] MEDS ORDERED: fentANYL 2 MCG/ML BUPIVacaine 0.125%-NSS 100ML BAG EPI PRN (16:23)
[2023-10-27] MEDS ORDERED: ROPIVACAINE 0.5% PF 5 MG/ML 20 ML VIAL EPI PRN (16:23)
[2023-10-27] MEDS ORDERED: LIDOCAINE 2%/EPINEPHRINE 1:200,000 20 ML PF EPI STA (16:23)
[2023-10-27] MEDS ORDERED: BUPIVACAINE 0.25% PF 30 ML VIAL EPI STA (16:23)
[2023-10-27] MEDS ORDERED: fentaNYL citrate PF 100 MCG/2 ML VIAL EPI STA (16:23)
[2023-10-27] MEDS ORDERED: BUPIVACAINE 0.25% PF 30 ML VIAL EPI PRN (16:23)
[2023-10-27] MEDS ORDERED: ePHEDrine sulfate 50 MG/ML AMP IV PRN (16:23)
--- NOTE | 2023-10-27 16:23 | Anesthesiology Consultation ---
Date of Service October 27, 2023 Assessment & Plan Chart Review Chart Review: Acceptable Risk for Labor Epidural History Height/Weight Height: 5 ft 7 in Weight: 76.204 kg Allergies Allergy/AdvReac Type Severity Reaction Status Date / Time No Known Allergies Allergy Verified 10/26/23 16:09 Medications Home Medications Medication Instructions Recorded Confirmed Last Taken prenat.vits,brianne,euw-[id number] 1 tab PO DAILY 05/23/21 10/26/23 05/23/21 08:00 acetone (urine) test (Ketone Urine #50 ea 09/15/23 10/26/23 Unknown Test strips) blood sugar diagnostic (OneTouch #150 ea 09/15/23 10/26/23 Unknown Verio test strips) blood-glucose meter (OneTouch #1 ea 09/15/23 10/26/23 Unknown Verio Reflect Meter) lancets 33 gauge (OneTouch Delica #150 ea 09/15/23 10/26/23 Unknown Plus Lancet) Active Medications Generic Name Dose Route Start Last Admin Trade Name Freq PRN Reason Stop Dose Admin Oxytocin 30 units in 500 mls @ 3 mls/hr 10/27/23 12:04 10/27/23 16:09 Pitocin 30 Units/Nss IV 10/29/23 12:03 0.18 units/hr .Q24H PRN 3 mls/hr Labor Induction/Augmentation Titration Protocol 0.18 UNITS/HR Lactated Ringer's 1,000 mls @ 125 mls/hr 10/27/23 12:04 10/27/23 15:35 Lr IV 10/29/23 12:03 125 mls/hr .Q8H PRN Administration L&D Protocol Protocol Past Medical History Medical History (Updated 10/27/23 @ 12:08 by Lenore Baptiste RN) Neutropenia History of chicken pox Severe pre-eclampsia with complication Cholestasis during Anemia Acute hyponatremia JOSÉ LUIS (acute kidney injury) Hypermagnesemia Encounter for pre-operative examination Severe preeclampsia Preeclampsia Pruritus of Dichorionic diamniotic twin Past Family History Family History Denies family history of Ovarian cancer Breast cancer Colorectal cancer Past Surgical History Surgical History (Updated 03/20/23 @ 09:05 by Kenyetta Steen) History of cryosurgery Status post colposcopy S/P tonsillectomy [place] teeth extracted Social History Smoking Status: Never smoker Do You Dip or Chew Tobacco: No Hx Alcohol Use: No Hx Substance Use: No substance use type: does not use Physical Exam Vital Signs Last Vital Signs Temp 36.7 C 10/27/23 11:58 Pulse 79 10/27/23 16:21 Resp 18 10/27/23 11:58 BP 115/72 10/27/23 16:21 Testing Laboratory Results 10/27/23 12:17 10/27/23 12:17 Blood Type A Positive 10/27/23 12:17 Antibody Screen NEGATIVE 10/27/23 12:17
[2023-10-27] MEDS: LIDOCAINE 2%/EPINEPHRINE 1:200,000 20 ML PF ONE (16:47)
[2023-10-27] MEDS: fentANYL 2 MCG/ML BUPIVacaine 0.125%-NSS 100ML BAG ONE (16:47)
--- NOTE | 2023-10-27 17:33 | Labor Progress Brief Note ---
Date of Service October 27, 2023 Subjective Comfortable with epidural. FHT Cat 1 [place] Q 2-3 SVE 6/80/-1 AROM clear fluid. Continue labor. Assessment & Plan Admission and Anticipated Discharge Date Admission Date: October 27, 2023 Results & Data Vital Signs (Past 12 Hours) Vital Signs Temp Pulse Resp BP Pulse Ox 10/27/23 17:31 71 10/27/23 17:31 103/65 10/27/23 17:30 98 10/27/23 17:30 67 10/27/23 17:30 93 10/27/23 17:30 71 10/27/23 17:27 18 10/27/23 17:27 36.9 C 18 10/27/23 17:25 100 10/27/23 17:25 70 10/27/23 17:20 98 10/27/23 17:20 79 10/27/23 17:17 78 10/27/23 17:17 112/74 10/27/23 17:15 18 10/27/23 17:15 18 10/27/23 17:15 99 10/27/23 17:15 81 10/27/23 17:11 75 10/27/23 17:11 119/77 10/27/23 17:10 100 10/27/23 17:10 84 10/27/23 17:08 81 10/27/23 17:08 126/69 10/27/23 17:05 99 10/27/23 17:05 80 10/27/23 17:01 78 10/27/23 17:01 102/73 10/27/23 17:00 98 10/27/23 17:00 83 10/27/23 17:00 18 10/27/23 17:00 18 10/27/23 16:59 80 10/27/23 16:59 101/78 10/27/23 16:57 80 10/27/23 16:57 112/69 10/27/23 16:55 20 10/27/23 16:55 20 10/27/23 16:55 99 10/27/23 16:55 81 10/27/23 16:55 111/72 10/27/23 16:53 77 10/27/23 16:53 105/66 10/27/23 16:51 82 10/27/23 16:51 112/76 10/27/23 16:50 20 10/27/23 16:50 20 10/27/23 16:50 99 10/27/23 16:50 80 10/27/23 16:49 83 10/27/23 16:49 109/76 10/27/23 16:47 73 10/27/23 16:47 104/73 10/27/23 16:45 98 10/27/23 16:45 86 10/27/23 16:45 104/79 10/27/23 16:40 97 10/27/23 16:40 84 10/27/23 16:35 99 10/27/23 16:35 79 10/27/23 16:30 100 10/27/23 16:30 80 10/27/23 16:23 79 L 10/27/23 16:23 80 10/27/23 16:23 80 L 10/27/23 16:23 75 10/27/23 16:21 79 10/27/23 16:21 115/72 10/27/23 15:42 84 10/27/23 15:42 113/65 10/27/23 11:58 36.7 C 18 10/27/23 11:56 93 H 109/69 Coding Level of Care Code None
--- NOTE | 2023-10-27 20:54 | Labor Progress Brief Note ---
Date of Service October 27, 2023 Subjective Comfortable with epidural. FHT 120s with mod janice, +accels, some early decelerations and occasional variable decelerations. Cervix 6-7/90/0 Continue labor, reposition as needed, anticipate . Assessment & Plan Admission and Anticipated Discharge Date Admission Date: October 27, 2023 Results & Data Vital Signs (Past 12 Hours) Vital Signs Temp Pulse Resp BP Pulse Ox 10/27/23 20:47 70 10/27/23 20:47 95/65 L 10/27/23 20:45 100 10/27/23 20:45 66 10/27/23 20:40 100 10/27/23 20:40 79 10/27/23 20:35 100 10/27/23 20:35 75 10/27/23 20:31 86 10/27/23 20:31 127/69 10/27/23 20:30 16 10/27/23 20:30 16 10/27/23 20:30 100 10/27/23 20:30 78 10/27/23 20:25 100 10/27/23 20:25 77 10/27/23 20:20 99 10/27/23 20:20 73 10/27/23 20:15 100 10/27/23 20:15 74 10/27/23 20:10 100 10/27/23 20:10 77 10/27/23 20:05 100 10/27/23 20:05 78 10/27/23 20:01 67 10/27/23 20:01 102/57 L 10/27/23 20:00 16 10/27/23 20:00 16 10/27/23 20:00 100 10/27/23 20:00 81 10/27/23 19:55 98 10/27/23 19:55 65 10/27/23 19:50 99 10/27/23 19:50 72 10/27/23 19:47 65 10/27/23 19:47 104/60 10/27/23 19:45 99 10/27/23 19:45 70 10/27/23 19:40 99 10/27/23 19:40 67 10/27/23 19:35 99 10/27/23 19:35 71 10/27/23 19:31 71 10/27/23 19:31 97/56 L 10/27/23 19:30 16 08/20/24 19:30 16 10/27/23 19:30 98 10/27/23 19:30 71 10/27/23 19:25 99 10/27/23 19:25 65 10/27/23 19:20 100 10/27/23 19:20 63 10/27/23 19:17 64 10/27/23 19:17 108/52 L 10/27/23 19:15 99 10/27/23 19:15 68 10/27/23 19:10 99 10/27/23 19:10 65 10/27/23 19:05 100 10/27/23 19:05 68 10/27/23 19:00 16 10/27/23 19:00 36.4 C L 16 10/27/23 19:00 99 10/27/23 19:00 81 10/27/23 18:59 18 10/27/23 18:59 18 10/27/23 18:55 99 10/27/23 18:55 67 10/27/23 18:50 100 10/27/23 18:50 66 10/27/23 18:46 71 10/27/23 18:46 104/64 10/27/23 18:45 99 10/27/23 18:45 63 10/27/23 18:40 100 10/27/23 18:40 67 10/27/23 18:35 100 10/27/23 18:35 75 10/27/23 18:32 68 10/27/23 18:32 109/69 10/27/23 18:30 100 10/27/23 18:30 69 10/27/23 18:30 18 10/27/23 18:30 18 10/27/23 18:25 100 10/27/23 18:25 69 10/27/23 18:20 100 10/27/23 18:20 71 10/27/23 18:17 72 10/27/23 18:17 111/72 10/27/23 18:15 99 10/27/23 18:15 75 10/27/23 18:10 100 10/27/23 18:10 75 10/27/23 18:05 99 10/27/23 18:05 77 10/27/23 18:00 18 10/27/23 18:00 18 10/27/23 18:00 99 08/20/24 18:00 84 10/27/23 17:55 99 10/27/23 17:55 68 10/27/23 17:50 99 10/27/23 17:50 73 10/27/23 17:46 68 10/27/23 17:46 99/64 L 10/27/23 17:45 99 10/27/23 17:45 69 10/27/23 17:40 99 10/27/23 17:40 72 10/27/23 17:35 100 10/27/23 17:35 70 10/27/23 17:31 71 10/27/23 17:31 103/65 10/27/23 17:30 98 10/27/23 17:30 67 10/27/23 17:30 93 10/27/23 17:30 71 10/27/23 17:27 18 10/27/23 17:27 36.9 C 18 10/27/23 17:25 100 10/27/23 17:25 70 10/27/23 17:20 98 10/27/23 17:20 79 10/27/23 17:17 78 10/27/23 17:17 112/74 10/27/23 17:15 18 10/27/23 17:15 18 10/27/23 17:15 99 10/27/23 17:15 81 10/27/23 17:11 75 10/27/23 17:11 119/77 10/27/23 17:10 100 10/27/23 17:10 84 10/27/23 17:08 81 10/27/23 17:08 126/69 10/27/23 17:05 99 10/27/23 17:05 80 10/27/23 17:01 78 10/27/23 17:01 102/73 10/27/23 17:00 98 10/27/23 17:00 83 10/27/23 17:00 18 10/27/23 17:00 18 10/27/23 16:59 80 10/27/23 16:59 101/78 10/27/23 16:57 80 10/27/23 16:57 112/69 10/27/23 16:55 20 10/27/23 16:55 20 10/27/23 16:55 99 10/27/23 16:55 81 10/27/23 16:55 111/72 10/27/23 16:53 77 10/27/23 16:53 105/66 10/27/23 16:51 82 10/27/23 16:51 112/76 10/27/23 16:50 20 10/27/23 16:50 20 10/27/23 16:50 99 10/27/23 16:50 80 10/27/23 16:49 83 10/27/23 16:49 109/76 10/27/23 16:47 73 10/27/23 16:47 104/73 10/27/23 16:45 98 10/27/23 16:45 86 10/27/23 16:45 104/79 10/27/23 16:40 97 10/27/23 16:40 84 10/27/23 16:35 99 10/27/23 16:35 79 10/27/23 16:30 100 10/27/23 16:30 80 10/27/23 16:23 79 L 10/27/23 16:23 80 10/27/23 16:23 80 L 10/27/23 16:23 75 10/27/23 16:21 79 10/27/23 16:21 115/72 10/27/23 15:42 84 10/27/23 15:42 113/65 10/27/23 11:58 36.7 C 18 10/27/23 11:56 93 H 109/69 Coding Level of Care Code None
--- NOTE | 2023-10-27 22:19 | Delivery Summary ---
Vaginal Delivery Summary Date of Service October 27, 2023 Vaginal Delivery Summary [facility] Vaginal Delivery Summary: Pre-delivery diagnoses: 32yo @ 39 /, cholestasis of , neutropenia, GDMA1 Post-delivery diagnoses: same, mild shoulder dystocia Procedure: spontaneous vaginal delivery Surgeon: Amanda Fields DO Complications: none Findings: Viable male . Apgars: 7/8. Weight pending, please see nursery records Estimated QBL: 150ml Description of delivery: The patient progressed to complete with epidural anesthesia. She then began to push. She spontaneously vaginally delivered a viable from the cephalic presentation. The head delivered in LUCAS position. Shoulder did not immediately deliver. No nuchal. The patient's legs were repositioned using McRobert's maneuver, and the posterior shoulder was delivered easily, followed by the anterior shoulder, followed by the body. The baby was placed on mother's abdomen and a spontaneous cry was heard. The cord was doubly clamped and cut. Cord blood was obtained. The placenta was delivered spontaneously intact with a 3-vessel cord. The uterus and vagina were swept of clots and debris. IV pitocin was given. The uterus became firm. The cervix, vagina, and perineum were inspected and no lacerations were noted. Excellent hemostasis was observed. The mother and baby are recovering in stable and good condition in the room. Sponge and instrument counts were correct x 2. Amanda Fields DO [facility] Vaginal Delivery Charge Vaginal Delivery Codes: 09014 global code for the antepartum, delivery, and post- Delivery Type Details: [facility]
[2023-10-27] MEDS ORDERED: HYDROCORTISONE ACETATE 25 MG SUPP PR PRN (22:52)
[2023-10-27] MEDS ORDERED: oxyCODONE/ACETAMINOPHEN 5mg/325mg TAB PO PRN (22:52)
[2023-10-27] MEDS ORDERED: BENZOCAINE 20% SPRY 85 APPLN/85 GM CAN EXT PRN (22:52)
[2023-10-27] MEDS ORDERED: ACETAMINOPHEN 325 MG TAB PO PRN (22:52)
[2023-10-27] MEDS ORDERED: bisacodyL 10 MG SUPP PR PRN (22:52)
[2023-10-28] MEDS: IBUPROFEN 600 MG TAB PO PRN (05:48)
--- NOTE | 2023-10-28 06:26 | Obstetrical Progress Note ---
Date of Service October 28, 2023 Assessment & Plan (1) Encounter for care and examination after delivery: Plan: PPD#1: Stable, continue routine care, continue OOB and ambulation, diet as tolerated Plan for d/c tonight (~20:00) Rh+, gbs -, ri Admission and Anticipated Discharge Date Admission Date: October 27, 2023 Supervising Physician Co-Signing Physician Notes Resident Physician Supervision Note: I interviewed and examined the patient. Discussed with Dr. Pennington and agree with findings and plan as documented in the note. Any exceptions or clarifications are listed here: PPD#1 doing well. Itching symptoms have resolved. LFTs are stable. Would like DC home today - reviewed instructions, follow up in 1 week in office for BP/symptoms, and then followup 6 w PP. Documented By: Amanda Fields, DO Rivera Gavin is a 32 y/o female who is PPD#1 following induced vaginal delivery at term. Itching in palms/soles has resolved She has minimal abdominal cramping (pain 2/10), well managed on analgesics Is voiding Is tolerating meals overnight Can ambulate on own. Having appropriate lochia Currently breast feeding. Review of Systems 2 Constitutional: no fever, no chills and no sweats Respiratory: no dyspnea Cardiovascular: no chest pain, no palpitations and no calf pain Genitourinary: no dysuria Neurologic: no headache(s) Physical Exam 2 Physical Exam: General: Alert, oriented. No acute distress. Cardiac: Regular rate and rhythm, no murmurs, rubs, or gallops. Respiratory: Clear to auscultation bilaterally, no wheezes/rales/rhonchi. No increased work of breathing. Symmetrical chest rise. No respiratory distress. Abdomen: Soft, nontender, nondistended. Bowel sounds present. Uterus: Uterine fundus firm, palpable at the level of the umbilicus. Lower extremities: No lower extremity edema or swelling. No deep calf pain. Results & Data Vital Signs (Past 12 Hours) Vital Signs Temp Pulse Resp BP Pulse Ox O2 Del Method 36.7 C 88 18 114/74 97 Room Air 10/28/23 04:15 10/28/23 04:15 10/28/23 04:15 10/28/23 04:15 10/28/23 04:15 10/28/23 04:15 Laboratory Results 10/27/23 12:17 10/27/23 12:17 Resident Activity Tracking Resident Involvement: Resident Care Provided Care Provided: Adult Hospital Medicine
[2023-10-28 06:45] LABS: Hematocrit (blood only) 35.9 % (37.0-47.0); Hemoglobin 12.7 g/dl (12.0-16.0)
[2023-10-28 07:27] LABS: Albumin Globulin Ratio 1.2 (0.9-2); Albumin Level 3.1 gm/dl (3.4-5.0); BUN Creatinine Ratio 10.2 (10-20); Calcium 8.2 mg/dl (8.6-10.3); Creatinine Clr Calc Pharmacy 144.4 ml/min; Est GFR (African American) 139.6 ml/min; Est GFR (Non-African American) 120.4 ml/min; Globulin 2.6 gm/dl (2.5-4.0); Potassium 3.9 mmol/L (3.5-5.1); Total Protein 5.7 gm/dl (6.0-8.3)
[2023-10-28] MEDS: DOCUSATE SODIUM 100 MG CAP PO SCH (08:45)
[2023-10-28] MEDS: PRENATAL VITAMIN 1 TAB PO SCH (08:45)
--- NOTE | 2023-10-28 10:31 | Anesthesia Procedure Note ---
Date of Service October 28, 2023 Anesthesia Post Epidural Note Vital Signs Vital Signs: Temp Pulse Resp BP Pulse Ox O2 Del Method 36.7 C 88 18 114/74 97 Room Air 10/28/23 04:15 10/28/23 04:15 10/28/23 04:15 10/28/23 04:15 10/28/23 04:15 10/28/23 04:15 Pain Intensity Perineal: Pain Intensity: 3 Notes Mental Status: alert / awake / arousable and participated in evaluation Nausea / Vomiting: adequately controlled Pain: adequately controlled Airway Patency, RR, SpO2: stable & adequate BP & HR: stable & adequate Hydration State: stable & adequate Neuraxial Anesthesia: was administered and sensory block is resolving Anesthetic Complications: no major complications apparent Epidural: Removed without complications and With tip intact
[2023-10-28] MEDS: fentaNYL citrate PF 100 MCG/2 ML VIAL ONE (10:38)
[2023-10-28] MEDS: DIPHTHER/TETAN/PERTUS Vaccine (Tdap, Adol/Adult) 0.5mL IM ONE (10:38)
[2023-10-28] MEDS: SODIUM CHLORIDE 0.9% PF INJ 10 ML VIAL ONE (10:38)
[2023-10-28] MEDS: ePHEDrine sulfate 50 MG/ML AMP ONE (10:38)
[2023-10-28] MEDS: BUPIVACAINE 0.25% PF 30 ML VIAL ONE (10:38)
[2023-10-28 17:08] VITALS: RESP 18
[2023-10-28] MEDS: bisacodyL 5 MG TABEC PO SCH (20:49)
[2023-10-28 21:42] VITALS: BP 109/71; PULSE 80; TEMP 97.9; O2SAT 97
== END 2023-10-28 22:31 | disposition home or self-care (01) | DRG 807 ==
LOC: 4S1 11:51 → 4E2 10-28 00:57